=== PATIENT | male | born 1940 | race Caucasian/White ===

== ENCOUNTER 2016-07-08 13:33 | Outpatient (CLI) | payer MEDICARE, OTHER | END 2016-07-08 13:34 | disposition EMS.NT | DX: R07.1 Chest pain on breathing (principal) ==

== ENCOUNTER 2017-09-19 17:38 | Emergency (ER) | payer MEDICARE, OTHER ==
--- NOTE | 2017-09-19 17:51 | ED Physician Documentation ---
PD HPI CHEST PAIN - Stated complaint Stated Complaint: FAST PULSE - History obtained from History obtained from: Patient, Friend - History of Present Illness Timing - onset: Yesterday (76-year-old gentleman with history of oxygen dependent COPD, continues to smoke, he has had chest pressure since yesterday associated with high heart rates around 120 on his home pulse oximetry. He also has increased pedal edema. He does have a history of CHF. He denies any increased breathing Or increased cough over baseline but appears to have labored breathing.) Review of Systems Ten Systems: 10 systems reviewed and negative Constitutional: reports: Fatigue. denies: Fever, Chills Cardiac: reports: Chest pain / pressure, Pedal edema. denies: Palpitations, Calf pain Respiratory: denies: Dyspnea, Cough, Hemoptysis, Wheezing PD PAST MEDICAL HISTORY - Past Medical History Cardiovascular: Hypertension, Atrial flutter Respiratory: COPD Endocrine/Autoimmune: None : None Psych: Depression Musculoskeletal: None Derm: None - Past Surgical History Past Surgical History: No Cardiovascular: Cardiac catheterization - Present Medications Home Medications: Ambulatory Orders Medication Instructions Recorded Confirmed Albuterol [Ventolin Hfa] 2 puffs INH Q4H PRN #1 inhaler 01/01/14 05/16/14 Aspirin 325 mg 01/01/14 05/16/14 Ipratropium/Albuterol Sulfate 4 gm 01/01/14 05/16/14 [Combivent Respimat Inhal [place]] - Allergies Allergies/Adverse Reactions: Allergies Allergy/AdvReac Type Severity Reaction Status Date / Time No Known Drug Allergies Allergy Verified 01/01/14 09:50 - Social History Does the pt smoke?: Yes Smoking Status: Former smoker Does the pt drink ETOH?: Yes Does the pt have substance abuse?: No - Family History Family history: reports: Non contributory - Immunizations Immunizations are current?: No - POLST Patient has POLST: No PD ED PE NORMAL - Vitals Vital signs reviewed: Yes - General General: Alert and oriented X 3, Other (He is tachypneic, speaking in sentences but not paragraphs.) - HEENT HEENT: PERRL, EOMI - Neck Neck: Supple, no meningeal sign, No bony TTP - Cardiac Cardiac: Other (Tachycardic, regular, no murmur) - Respiratory Respiratory: Other (Labored breathing, tight throughout without focal findings, declines breathing treatment on initial evaluation.) - Abdomen Abdomen: Normal bowel sounds, Soft, Non tender - Back Back: No CVA TTP, No spinal TTP - Extremities Extremities: No edema, No calf tenderness / cord - Neuro Neuro: Alert and oriented X 3, Normal speech - Psych Psych: Normal mood, Normal affect Results - Vitals Vitals: Vital Signs - 24 hr 09/19/17 09/19/17 09/19/17 17:40 18:15 18:54 Temperature 36.8 C Heart Rate 116 H 99 99 Respiratory 24 20 20 Rate Blood Pressure 186/133 H 170/132 H O2 Saturation 96 96 09/19/17 09/19/17 19:53 20:08 Temperature 36.4 C L Heart Rate 99 120 H Respiratory 20 18 Rate Blood Pressure 181/117 H O2 Saturation 96 95 Oxygen O2 Source Nasal cannula Oxygen Flow Rate 2 - EKG (time done) 1749 Rate: Rate (enter#) (116) Rhythm: Sinus tachycardia (with occ PVC) [place]: Normal Intervals: RBBB QRS: Normal Ischemia: Normal ST segments. No: ST elevation c/w ischemia Computer interpretation: Agree with computer - Labs Labs: Laboratory Tests 09/19/17 09/19/17 09/19/17 17:50 17:50 17:50 WBC 7.1 RBC 4.22 L Hgb 13.7 L Hct 40.0 L MCV 94.6 H MCH 32.5 H MCHC 34.3 RDW 14.2 Plt Count 220 MPV 9.0 Neut # (Auto) 5.0 Lymph # (Auto) 1.0 L [place] # (Auto) 0.7 Eos # (Auto) 0.2 Baso # (Auto) 0.1 Absolute Nucleated RBC 0.01 Nucleated RBC % 0.1 Sodium 135 Potassium 3.7 Chloride 99 L Carbon Dioxide 28 Anion Gap 8.0 BUN 28 H Creatinine 1.1 Estimated GFR (MDRD) 65 L Glucose 100 Calcium 9.0 Total Bilirubin 0.7 AST 22 ALT 21 Alkaline Phosphatase 89 Troponin I 0.07 B-Natriuretic Peptide Total Protein 6.8 Albumin 3.5 Globulin 3.3 Albumin/Globulin Ratio 1.1 Lipase 34 TSH 09/19/17 09/19/17 17:50 17:50 WBC RBC Hgb Hct MCV MCH MCHC RDW Plt Count MPV Neut # (Auto) Lymph # (Auto) [place] # (Auto) Eos # (Auto) Baso # (Auto) Absolute Nucleated RBC Nucleated RBC % Sodium Potassium Chloride Carbon Dioxide Anion Gap BUN Creatinine Estimated GFR (MDRD) Glucose Calcium Total Bilirubin AST ALT Alkaline Phosphatase Troponin I B-Natriuretic Peptide 535 H Total Protein Albumin Globulin Albumin/Globulin Ratio Lipase TSH 2.54 PD MEDICAL DECISION MAKING - ED course ED course: 76-year-old gentleman presents with pretty much asymptomatic sinus tachycardia which did improve with IV fluid bolus here of 500 mL down to about 100 and requesting discharge. His labs are at his baseline. Chest x-ray without evidence of fluid overload. - Sepsis Event Vital Signs: Vital Signs - 24 hr 09/19/17 09/19/17 09/19/17 17:40 18:15 18:54 Temperature 36.8 C Heart Rate 116 H 99 99 Respiratory 24 20 20 Rate Blood Pressure 186/133 H 170/132 H O2 Saturation 96 96 09/19/17 09/19/17 19:53 20:08 Temperature 36.4 C L Heart Rate 99 120 H Respiratory 20 18 Rate Blood Pressure 181/117 H O2 Saturation 96 95 Oxygen O2 Source Nasal cannula Oxygen Flow Rate 2 Departure - Departure Disposition: 01 Home, Self Care Clinical Impression: Sinus tachycardia Condition: Good Record reviewed to determine appropriate education?: Yes Instructions: ED Tachycardia Pat PSVT Comments: Call your doctor to arrange a follow-up appointment, make the next available appointment. In the interim, return anytime if worse or if new symptoms develop. Your blood pressure was elevated today on check into the emergency department. This does not mean that you have hypertension, it is a common phenomenon to come to the emergency department and have elevated blood pressure. I recommend that you see your primary care physician within the week to have it rechecked when you are feeling better.
[2017-09-19 18:10] LABS: BASOPHILS # (AUTO) 0.1 10^3/uL (0.0-0.1); EOSINOPHILS # (AUTO) 0.2 10^3/uL (0.0-0.7); EOSINOPHILS % (AUTO) 3.1 %; HGB - HEMOGLOBIN 13.7 g/dL (14.0-18.0); LYMPHOCYTES % (AUTO) 14.7 %; MEAN CORPUSCULAR HEMOGLOBIN 32.5 pg (27.0-31.0); MEAN CORPUSCULAR HGB CONC 34.3 g/dL (32.0-36.0); MEAN CORPUSCULAR VOLUME 94.6 fL (80.0-94.0); MONOCYTES # (AUTO) 0.7 10^3/uL (0.0-1.0); MONOCYTES % (AUTO) 10.5 %; NEUTROPHILS % (AUTO) 70.7 %; PLT - PLATELET COUNT 220 10^3/uL (130-450); RED BLOOD COUNT 4.22 10^6/uL (4.70-6.10); RED CELL DISTRIBUTION WIDTH 14.2 % (12.0-15.0); WHITE BLOOD COUNT 7.1 x10^3/uL (4.8-10.8)
[2017-09-19 18:23] LABS: ALBUMIN 3.5 g/dL (3.2-5.5); ALBUMIN/GLOBULIN RATIO 1.1 (1.0-2.2); BILIRUBIN,TOTAL 0.7 mg/dL (0.2-1.0); CREATININE 1.1 mg/dL (0.6-1.2); TOTAL PROTEIN 6.8 g/dL (6.7-8.2)
[2017-09-19] MEDS ORDERED: SODIUM CHLORIDE 0.9% 500 ML IV ONE (18:34)
[2017-09-19] MEDS ORDERED: IPRATROPIUM/ALBUTEROL 3 ML NEB INH STA (18:44)
--- NOTE | 2017-09-19 18:51 | XRAY Report ---
Procedure Date: 09/19/2017 Accession Number: [id number] / [id number] Procedure: XR - Chest 1 View X-Ray CPT Code: 05611 FULL RESULT: EXAM: CHEST RADIOGRAPHY EXAM DATE: 09/19/2017 06:07 PM. CLINICAL HISTORY: Dyspnea. COMPARISON: Radiograph and CT angiogram chest 05/16/2014. TECHNIQUE: Upright AP view x2. FINDINGS: Lungs/Pleura: No focal opacities evident. No pleural effusion. No pneumothorax. Mediastinum: Within exam limitations, the cardiomediastinal contour is normal. Mild aortic arch calcification. Other: None. IMPRESSION: Negative chest. Lungs are clear. RADIA
[2017-09-19 19:55] VITALS: BP 181/117
== END 2017-09-19 20:36 | disposition home or self-care (01) ==
LOC: ED 17:38
DX: R00.0 Tachycardia, unspecified (principal); I10 Essential (primary) hypertension; J44.9 Chronic obstructive pulmonary disease, unspecified; Z87.891 Personal history of nicotine dependence
CPT/HCPCS: 36415; 71045; 80053; 83690; 83880; 84443; 84484; 85025; 93005; 94640; 96360; 99284

== ENCOUNTER 2018-03-05 11:25 | Outpatient (CLI) | payer MEDICARE, OTHER | END 2018-03-05 11:26 | disposition critical access hospital (66) | LOC: EMS 11:25 | PROVIDERS: ATTEND Surgery | DX: R45.851 Suicidal ideations (principal); R53.1 Weakness; R06.02 Shortness of breath | CPT/HCPCS: A0425; A0427 ==

== ENCOUNTER 2018-03-05 12:06 | Inpatient (IN) | payer MEDICARE, OTHER ==
[2018-03-05] MEDS ORDERED: ALBUTEROL NEB 2.5 MG/3 ML INH STA (12:21)
[2018-03-05] MEDS ORDERED: SODIUM CHLORIDE 0.9% 500 ML IV ONE (12:21)
--- NOTE | 2018-03-05 12:24 | ED Physician Documentation ---
PD HPI DYSPNEA - Stated complaint Stated Complaint: GLF - History obtained from History obtained from: Patient, EMS - History of Present Illness Timing - onset: Other (This is a 77-year-old gentleman with COPD on oxygen, 2 L/min. He has been having increased breathing difficulty over the last few days and because of that actuallywrote a vague suicide note last night and has a firearm at home. He says he is not suicidal now and today he was leaning over to get something and kind of fell backwards. There is no injury but because of weakness he could not get up by himself and paramedics were summoned and they saw the suicide note and brought him here. He has no specific complaint except for increased shortness of breath, he also has a nonproductive cough and runny nose. No fevers or body aches. He is not currently suicidal.) Review of Systems Ten Systems: 10 systems reviewed and negative Constitutional: denies: Fever, Chills, Myalgias Nose: reports: Rhinorrhea / runny nose. denies: Congestion Throat: denies: Sore throat Cardiac: denies: Chest pain / pressure, Palpitations Respiratory: reports: Dyspnea, Cough GI: denies: Abdominal Pain Musculoskeletal: reports: Extremity swelling (pedal edema at baseline for him) PD PAST MEDICAL HISTORY - Past Medical History Cardiovascular: Hypertension, Atrial flutter Respiratory: COPD Endocrine/Autoimmune: None : None Psych: Depression Musculoskeletal: None Derm: None - Past Surgical History Past Surgical History: No Cardiovascular: Cardiac catheterization - Present Medications Home Medications: Ambulatory Orders Medication Instructions Recorded Confirmed Albuterol [Ventolin Hfa] 2 puffs INH Q4H PRN #1 inhaler 01/01/14 05/16/14 Aspirin 325 mg 01/01/14 05/16/14 Ipratropium/Albuterol Sulfate 4 gm 01/01/14 05/16/14 [Combivent Respimat Inhal [place]] - Allergies Allergies/Adverse Reactions: Allergies Allergy/AdvReac Type Severity Reaction Status Date / Time No Known Drug Allergies Allergy Verified 03/05/18 12:27 - Social History Does the pt smoke?: Yes Smoking Status: Former smoker Does the pt drink ETOH?: Yes Does the pt have substance abuse?: No - Family History Family history: reports: Non contributory - Immunizations Immunizations are current?: No - POLST Patient has POLST: No PD ED PE NORMAL - Vitals Vital signs reviewed: Yes - General General: Alert and oriented X 3, Other (Somewhat breathless with poor eye contact but speaking in full sentences) - HEENT HEENT: PERRL, EOMI - Neck Neck: Supple, no meningeal sign, No bony TTP - Cardiac Cardiac: RRR, No murmur - Respiratory Respiratory: Other (Slightly labored but speaking in full sentences, rhonchorous and diminished throughout.) - Abdomen Abdomen: Soft, Non tender - Back Back: No CVA TTP, No spinal TTP - Derm Derm: Normal color, Warm and dry - Extremities Extremities: Other (Moderate symmetric pedal edema) - Neuro Neuro: Alert and oriented X 3, Normal speech Results - Vitals Vitals: Vital Signs - 24 hr 03/05/18 03/05/18 03/05/18 12:23 12:40 12:43 Temperature 36.5 C Heart Rate 88 77 77 Respiratory 20 20 15 Rate Blood Pressure 129/77 129/77 O2 Saturation 96 98 03/05/18 03/05/18 13:00 16:30 Temperature Heart Rate 86 82 Respiratory 20 17 Rate Blood Pressure 133/93 H 134/88 H O2 Saturation 91 L 94 Oxygen O2 Source Nasal cannula - EKG (time done) 1235 Rate: Rate (enter#) (78) Rhythm: NSR Intervals: RBBB Ischemia: ST elevation c/w ischemia Computer interpretation: Agree with computer - Labs Labs: Laboratory Tests 03/05/18 03/05/18 03/05/18 12:25 12:25 12:25 WBC 10.3 RBC 4.19 L Hgb 13.8 L Hct 39.0 L MCV 93.1 MCH 32.9 H MCHC 35.4 RDW 13.7 Plt Count 262 MPV 8.1 Neut # (Auto) 8.7 H Lymph # (Auto) 0.5 L [place] # (Auto) 1.0 Eos # (Auto) 0.1 Baso # (Auto) 0.1 Absolute Nucleated RBC 0.00 Nucleated RBC % 0.0 Sodium 121 L Potassium 4.7 Chloride 88 L Carbon Dioxide 22 Anion Gap 11.0 BUN 19 Creatinine 1.0 Estimated GFR (MDRD) 73 L Glucose 116 H Calcium 8.5 Total Bilirubin 1.1 H AST 24 ALT 22 Alkaline Phosphatase 83 Troponin I < 0.04 B-Natriuretic Peptide Total Protein 6.7 Albumin 3.8 Globulin 2.9 Albumin/Globulin Ratio 1.3 Lipase 35 Salicylates < 6.0 Urine Opiates Screen Ur Oxycodone Screen Urine Methadone Screen Ur Propoxyphene Screen Acetaminophen < 10 L Ur Barbiturates Screen Ur Tricyclics Screen Ur Phencyclidine Scrn Ur Amphetamine Screen U Methamphetamines Scrn U Benzodiazepines Scrn Urine Cocaine Screen U Cannabinoids Screen Ethyl Alcohol < 5.0 Influenza A (Rapid) Influenza B (Rapid) 03/05/18 03/05/18 03/05/18 12:25 12:46 13:45 WBC RBC Hgb Hct MCV MCH MCHC RDW Plt Count MPV Neut # (Auto) Lymph # (Auto) [place] # (Auto) Eos # (Auto) Baso # (Auto) Absolute Nucleated RBC Nucleated RBC % Sodium Potassium Chloride Carbon Dioxide Anion Gap BUN Creatinine Estimated GFR (MDRD) Glucose Calcium Total Bilirubin AST ALT Alkaline Phosphatase Troponin I B-Natriuretic Peptide 177 H Total Protein Albumin Globulin Albumin/Globulin Ratio Lipase Salicylates Urine Opiates Screen NEGATIVE Ur Oxycodone Screen NEGATIVE Urine Methadone Screen NEGATIVE Ur Propoxyphene Screen NEGATIVE Acetaminophen Ur Barbiturates Screen NEGATIVE Ur Tricyclics Screen NEGATIVE Ur Phencyclidine Scrn NEGATIVE Ur Amphetamine Screen NEGATIVE U Methamphetamines Scrn NEGATIVE U Benzodiazepines Scrn NEGATIVE Urine Cocaine Screen NEGATIVE U Cannabinoids Screen POSITIVE H Ethyl Alcohol Influenza A (Rapid) Negative Influenza B (Rapid) Negative - Rads (name of study) CXR Radiology: EMP read contemporaneously (Diminished right pulmonary vasculature which the radiologist feels might be consistent with PE, CTA ordered.) CTA chest Radiology: EMP read contemporaneously (No PE, dilated main pulmonary artery, low-density material within the right lower lobe and there is a small pericardial effusion which is basically chronic.) PD MEDICAL DECISION MAKING - ED course ED course: This is a 77-year-old gentleman with underlying COPD presents with exacerbation of same also be found to be fairly hyponatremic. This is all complicated by a suicide note and access to firearms. Social work saw him, but he just had a panic attack and given a small amount amount of Ativan so was not really cogent at the time. Given the respiratory compromise, weakness, and acute hyponatremia and noting that his usual sodium is in the high 130s I spoke with Dr. Maged for observation at 4:33 PM. Departure - Departure Disposition: ED Place in Observation Clinical Impression: COPD exacerbation, Hyponatremia, Suicidal ideations Condition: Serious
[2018-03-05 12:37] LABS: BASOPHILS # (AUTO) 0.1 10^3/uL (0.0-0.1); BASOPHILS % (AUTO) 0.6 %; EOSINOPHILS # (AUTO) 0.1 10^3/uL (0.0-0.7); EOSINOPHILS % (AUTO) 0.6 %; HGB - HEMOGLOBIN 13.8 g/dL (14.0-18.0); LYMPHOCYTES # (AUTO) 0.5 10^3/uL (1.5-3.5); LYMPHOCYTES % (AUTO) 4.6 %; MEAN CORPUSCULAR HEMOGLOBIN 32.9 pg (27.0-31.0); MEAN CORPUSCULAR HGB CONC 35.4 g/dL (32.0-36.0); MEAN CORPUSCULAR VOLUME 93.1 fL (80.0-94.0); MEAN PLATELET VOLUME 8.1 fL (7.4-11.4); MONOCYTES % (AUTO) 9.4 %; NEUTROPHILS # (AUTO) 8.7 10^3/uL (1.5-6.6); NEUTROPHILS % (AUTO) 84.8 %; PLT - PLATELET COUNT 262 10^3/uL (130-450); RED BLOOD COUNT 4.19 10^6/uL (4.70-6.10); RED CELL DISTRIBUTION WIDTH 13.7 % (12.0-15.0); WHITE BLOOD COUNT 10.3 x10^3/uL (4.8-10.8)
[2018-03-05 12:52] LABS: ACETAMINOPHEN < 10 ug/mL (10-30); ALBUMIN 3.8 g/dL (3.2-5.5); ALBUMIN/GLOBULIN RATIO 1.3 (1.0-2.2); ALKALINE PHOSPHATASE 83 IU/L (42-121); ALT ALANINE AMINOTRANSFERASE 22 IU/L (10-60); AST ASPARTATE AMINOTRANSFERASE 24 IU/L (10-42); BILIRUBIN,TOTAL 1.1 mg/dL (0.2-1.0); BUN - BLOOD UREA NITROGEN 19 mg/dL (6-20); CALCIUM 8.5 mg/dL (8.5-10.3); CARBON DIOXIDE - CO2 22 mmol/L (21-32); CHLORIDE 88 mmol/L (101-111); GFR - MDRD 73 (>89); GLUCOSE 116 mg/dL (70-100); LIPASE 35 U/L (22-51); SALICYLATE < 6.0 mg/dL; SODIUM 121 mmol/L (135-145); TOTAL PROTEIN 6.7 g/dL (6.7-8.2)
[2018-03-05] MEDS ORDERED: LORazepam 2 MG/ML VIAL IVP STA (12:55)
--- NOTE | 2018-03-05 13:52 | XRAY Report ---
Reason: dyspnea Procedure Date: 03/05/2018 Accession Number: [id number] / [id number] Procedure: XR - Chest 2 View X-Ray CPT Code: 39548 FULL RESULT: EXAM: CHEST RADIOGRAPHY EXAM DATE: 03/05/2018 01:31 PM. CLINICAL HISTORY: Dyspnea. COMPARISON: CHEST 1 VIEW 09/19/2017 5:56 PM CHEST 2 VIEW PA/LAT 05/16/2014 10:19 AM. TECHNIQUE: 2 views. FINDINGS: Lungs/Pleura: No focal opacities evident. No pleural effusion. No pneumothorax. Normal volumes. Mild asymmetric increased lucency to the right upper lung, favor due to diminished vascular structures. Mediastinum: Heart size is upper limits of normal for technique but not significantly changed. Mediastinal contours are stable. There is slight asymmetric prominence of the left hilar pulmonary vasculature. Other: None. IMPRESSION: 1. Appearance suggesting diminished right pulmonary vascularity with mild increase on the of the left. These findings in the setting of acute dyspnea raise possibility of acute pulmonary embolus. RADIA
[2018-03-05] MEDS ORDERED: IOVERSOL 320 100 ML VIAL IVP ONE ×2 (14:25→15:23)
[2018-03-05 14:26] LABS: MUDS CUTOFF CONCENTRATIONS CUTOFF CONC BELOW:
[2018-03-05 14:42] LABS: AMPHETAMINE SCREEN,URINE NEGATIVE (NEGATIVE); BENZODIAZEPINES SCREEN, URINE NEGATIVE (NEGATIVE); COCAINE SCREEN URINE NEGATIVE (NEGATIVE); METHADONE SCREEN, URINE NEGATIVE (NEGATIVE); METHAMPHETAMINES SCREEN, URINE NEGATIVE (NEGATIVE); OPIATE SCREEN, URINE NEGATIVE (NEGATIVE); OXYCODONE SCREEN, URINE NEGATIVE (NEGATIVE); PROPOXYPHENE SCREEN, URINE NEGATIVE (NEGATIVE); TRICYCLIC ANTIDEPRESSANT,URINE NEGATIVE (NEGATIVE)
--- NOTE | 2018-03-05 15:49 | CT Report ---
Reason: dyspnea Procedure Date: 03/05/2018 Accession Number: [id number] / [id number] Procedure: CT - Chest Angio (PE) CPT Code: FULL RESULT: EXAM: CT ANGIOGRAM CHEST. EXAM DATE: 03/05/2018 03:20 PM. CLINICAL HISTORY: Dyspnea. Possible [place] sign on chest x-ray. COMPARISON: Chest angiogram 05/16/2014 12:57 PM. TECHNIQUE: Routine helical imaging was performed through the chest in the pulmonary arterial phase. IV Contrast: 80 mL ISOVUE 320. Reconstructions: Coronal 3-D MIP reconstructions.Sagittal and coronal. In accordance with CT protocol optimization, one or more of the following dose reduction techniques were utilized for this exam: automated exposure control, adjustment of mA and/or KV based on patient size, or use of iterative reconstructive technique. FINDINGS: Pulmonary Arteries: Main pulmonary artery segment is dilated at 3.3 cm. The pulmonary arteries are also dilated at 2.8 cm (right) and 2.6 cm (left). Diagnostic quality: Adequate through the segmental arteries. No evidence for acute or chronic pulmonary emboli. RV/LV is within normal limits. There is no interventricular septal bowing. There is no reflux of contrast material in the IVC. Lungs/Pleura: No consolidation, nodules, or edema. No effusions or pneumothorax. Subtotal mucus/low density filling of segmental bronchus to the posterior segment right lower lobe. Mediastinum: Heart is normal in size. There is a small anterior pericardial effusion 7-8 mm in AP thickness, only slightly larger than the comparison exam of 2014. There is atherosclerotic deposition noted of the aorta and coronary vessels similar to the prior exam. 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 Thoracic Aorta: As above. Upper Abdomen: No specific abnormalities demonstrated. Other: None. IMPRESSION: 1. No evidence of acute pulmonary embolus. 2. Dilated main pulmonary artery/central pulmonary arteries as described could indicate underlying pulmonary artery hypertension. No appreciable evidence of right heart strain. 3. Low-density material/mucus within segmental right lower lobe bronchus could be due to aspiration. 4. Small pericardial effusion only slightly larger than the comparison exam. RADIA
[2018-03-05] MEDS ORDERED: PROMETHAZINE 25 MG/1 ML VIAL IM PRN (17:10)
[2018-03-05] MEDS ORDERED: ONDANSETRON 4 MG/2 ML VIAL IVP PRN (17:10)
[2018-03-05] MEDS ORDERED: MORPHINE 2 MG/ML CARPUJECT IVP PRN (17:10)
[2018-03-05] MEDS ORDERED: HYDROcod/ACETAM 5/325 MG TABLET PO PRN (17:10)
[2018-03-05] MEDS ORDERED: TEMAZEPAM 15 MG CAPSULE PO PRN (17:10)
--- NOTE | 2018-03-05 17:20 | HISTORY & PHYSICAL EXAMINATION ---
Chief Complaint - Chief Complaint Chief Complaint: fall, AMS History of Present Illness - Admitted From Admitted From:: ED - History Obtained From Records Reviewed: yes History obtained from: chart review, patient, family friend-Yanick Exam Limitations: AMS - History of Present Illness HPI Comment/Other: Mendoza Medrano is a ill appearing 77-year old male with a past medical history of CHF, hypertension, atrial flutter, COPD, tobacco dependence, oxygen dependence, falls, depression, anxiety, previous suicide attempts and nocturia. The patient called for help after falling to his knees from becoming too weak at home. He has frequent care givers to help with house work and meals. Once the EMS arrived, the patient was found on the floor and was conscious. Rescue workers found a suicide note with a pistol on the kitchen table. He was transported to the ED and was found to be hypoxic, and slightly confused. His friend Yanick, who the patient claims to be his "best friend" is present for the initial exam and states that he is very concerned for his well being. On exam the patient is only mildly agitated, but could not attest to no longer being suicidal. In fact, he claimed that he was quite upset that he had to fall to the floor before getting this task completed and became tearful multiple times during my time with him. He is on oxygen, has an unkept appearance, poor dentition, has equal weakness in all 4 extremities, and smells of urine. He denies recent illness, fever, chills, vomiting, diarrhea, rashes, hallucinations, or a new cough. Labs showed a low H/H of 13.8/39.0, a normal WBC, a low sodium of 121, a negative troponin with no other lab abnormalities. He will be admitted for further work up to inpatient with a 1:1 sitter, worrisome for continued suicidal ideation. History - Past Medical History Cardiovascular: reports: Congestive heart failure, Hypertension, High cholesterol, Coronary artery disease, Peripheral Vascular Disease, Atrial flutter, Atrial fibrillation, Murmur, Arrhythmia Respiratory: reports: Asthma, COPD, Pneumonia, Shortness of breath, Sleep apnea, Other (chronic home oxygen at 2L via nasal cannula.) Neuro: reports: Dementia, Headaches, Peripheral neuropathy, Tremors Endocrine/Autoimmune: reports: None GI: reports: GERD : reports: None, Nocturia, Frequency HEENT: reports: Chronic vision loss, Chronic hearing loss Psych: reports: Depression, Anxiety, Post traumatic stress disorder Musculoskeletal: reports: Osteoarthritis, Fatigue, Chronic back pain, Other (chronic carpel tunnel discomfort in dominant Left wrist) Derm: reports: None MRSA Hx?: No - Past Surgical History Cardiovascular: reports: Angioplasty - Family & Social History Family History: Mother: , CAD, Father: , CAD, Brother: Alive and Well, , CAD Living arrangement: At home Living Situation: Alone Social History Notes: The patient has been retired for several years but worked for the [employer] and had 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 Most of his [place] was done [place]. He was to his , who 4 years ago. He lives independently and has caregiver severel times per week. He has a best friend named Yanick. The patient admits to life long cigarette smoking, occasional alcohol use, or illicit drug use, although tested + for marijuana. The patient requests to be a DNR. - Substance History Use: Uses substance without health or social issues: Tobacco Use Issues: Anxiety Disorder Abuse: Recurrent use of substance despite neg consequences: NONE Dependence: Experiences withdrawal or developed tolerances: Tobacco Dependence Issues: Anxiety Disorder Tobacco Details: Cigarettes (life long smoker, currently greater than 1 PPD.) - POLST Patient has POLST: No POLST Status: DNR Meds/Allgy - Home Medications Home Medications: Ambulatory Orders Medication Instructions Recorded Confirmed Aspirin 325 mg PO DAILY 01/01/14 03/05/18 Ipratropium/Albuterol Sulfate 1 puffs INH QID 01/01/14 03/05/18 [Combivent Respimat Inhal [place]] Albuterol Sulfate [Proair Hfa 2 puffs INH Q6H PRN 03/05/18 03/05/18 Inhaler] Atorvastatin Calcium 40 mg PO QPM 03/05/18 03/05/18 Cholecalciferol (Vitamin D3) 400 units PO DAILY 03/05/18 03/05/18 [Vitamin D3] Enalapril Maleate 10 mg PO DAILY 03/05/18 03/05/18 Fluticasone/Vilanterol [Breo 1 puffs INH BID 03/05/18 03/05/18 Ellipta 200-25 Mcg INH] Spironolactone 25 mg PO DAILY 03/05/18 03/05/18 diltiaZEM CD [Cardizem Cd] 180 mg PO DAILY 03/05/18 03/05/18 - Allergies Allergies/Adverse Reactions: Allergies Allergy/AdvReac Type Severity Reaction Status Date / Time No Known Drug Allergies Allergy Verified 03/05/18 12:27 Review of Systems - Constitutional Constitutional: reports: Fatigue, Weakness, Poor appetite - Eyes Eyes: reports: Vision loss, Corrective lenses - Ears, Nose & Throat Ears, Nose & Throat: reports: Hearing loss, Postnasal drainage - Cardiovascular Cariovascular: reports: Edema, Lightheadedness, Exertional dyspnea, Decr. exercise tolerance, Orthopnea - Respiratory Respiratory: reports: Cough, Orthopnea, SOB at rest, SOB with exertion - Gastrointestinal Gastrointestinal: reports: Abdominal distention, Nausea, Reflux/heartburn, Bloating, Poor appetite - Genitourinary Genitourinary: reports: Dysuria, Nocturia - Musculoskeletal Musculoskeletal: reports: Muscle aches, Muscle weakness, Joint swelling - Integumentary Integumentary: reports: Dryness, Other (overall poor skin condition) - Neurological Neurological: reports: General weakness, Headache, Memory problems, Pre-existing deficit, Abnormal gait, Incoordination - Psychiatric Psychiatric: reports: Depression, Anxiety, Suicidal - Hematologic/Lymphatic Hematologic/Lymphatic: reports: Anemia, Bruising - All Other Systems All Other Systems: reports: Reviewed and negative Prior Level of Functionality: Ambulates independently unless he falls. Exam - Vital Signs Reviewed Vital Signs: Yes Vital Signs: Vital Signs x48h Temp Pulse Resp BP Pulse Ox 03/05/18 16:30 82 17 134/88 H 94 03/05/18 13:00 86 20 133/93 H 91 L 03/05/18 12:43 77 15 129/77 98 03/05/18 12:40 77 20 03/05/18 12:23 36.5 C 88 20 129/77 96 - Physical Exam General Appearance: positive: Alert, Moderate distress, Anxious Eyes Bilateral: positive: PERRL, Other (bilateral eye swelling-mild, scleral icterus) ENT: positive: Pharyngeal erythema, Dry mucous membranes Neck: positive: No JVD Respiratory: positive: Chest non-tender, Rhonchi (coarse throughout bilaterally) Cardiovascular: positive: Regular rate & rhythm, Tachycardia, Systolic murmur, Decreased pulse(s) Peripheral Pulses: positive: 1+ Abdomen: positive: Nml bowel sounds, Guarding, Hepatomegaly, Other (obese, firm) Back: positive: Nml inspection Skin: positive: No rash, Warm, Dry, Other (poor overall skin condition) Extremities: positive: Pedal edema, Joint swelling, Other (tenderness, loss of sensation, dry flakey skin to BLEs-chronic edema. Loss of muscle tone) Neurologic/Psychiatric: positive: Disoriented to time, Weakness, Sensory loss, Slurred/abnml speech, Depressed mood/affect, Other (baseline early dementia- acute memory loss and mild confusion. Could not elaborate on his medical conditions or what may be going on today.) Reflexes: Bicep (R): 2+, Bicep (L): 2+ Sepsis Event Note (H) - Evaluation Current Stage of Sepsis: Ruled out Conclusion/Plan - Problem List (1) Metabolic encephalopathy Conclusion/Plan: The patient cannot answer questions asked and cannot elaborate on his medical diagnoses. He is not known to be quite this confused as per his friend-Yanick who is at the bedside during his initial exam. A contributing factor may be due to being hyponatremic. Plan: Continue to monitor. (2) Hyponatremia Conclusion/Plan: The patient is found to have a low sodium of 121, which is likely related to his CHF exacerbation showing fluid overload. Plan: daily labs, start IV lasix. (3) CHF exacerbation Conclusion/Plan: The patient has coarse crackles in bilateral lobes, increased oxygen requirements, abdominal edema, and profound BLE edema. Imaging shows no pleural effusions, but based on history and physical findings, the patient is most likely having an exacerbation. An old echo from 2014 showed a reduced EF of 50-55%, mild LVH and pulmonary hypertension. Plan: IV lasix, continue home spironolactone, obtain an echo in the AM and monitor I/O, daily weights, etc. Qualifiers: Heart failure type: combined systolic and diastolic Qualified Code(s): I50.43 - Acute on chronic combined systolic (congestive) and diastolic (congestive) heart failure (4) Suicidal ideations Conclusion/Plan: In reviewing the chart and with the confirmation from the patient's friend, a similar thing happened about 3 years ago on the anniversary of the loss of his in which he had a gun and a suicide note. He notes that "things just did not go his way", and he has not been able to carry out this wish of killing himself. He claims that he no longer has anyone to live for since loosing his . Plan: Continue 1:1 and re-assess. Social work to follow. (5) Fall Conclusion/Plan: The patient states that he has been falling more often lately without injury, but has been able to get back up on his own. For the fall prior to admission, he fell and felt too weak to get back up, so was able to call for help. Plan: Continue fall precautions, PT to evaluate after medically clear. Qualifiers: Encounter type: subsequent encounter Qualified Code(s): W19.XXXD - Unspecified fall, subsequent encounter (6) Tobacco dependence Conclusion/Plan: The patient admits to using tobacco for his entire life and just recently has been smoking up to 1 PPD. He is agreeable to a nicotine patch. Plan: Continue daily nicotine patch. (7) Moderate chronic obstructive pulmonary disease Conclusion/Plan: The patient has known COPD and is oxygen dependent at home. He continues to smoke up to 1 PPD. He is prescribed Breo Ellipta, Proair and a rescue inhaler at home. He admits to compliance, although is somewhat confused on admission. His lung exam reveals bilateral coarse crackles, which is most likely related to his CHF exacerbation. He is not wheezy on exam, has not had a new productive cough and is able to speak in full sentences on exam. Plan: Continue respiratory care, budesinide, duo-nebs and incentive spirometry. - Lab Results Lab results reviewed: Yes Shaun Bones: 03/06/18 05:35 03/06/18 05:35 Core Measures - Anticipated LOS I expect patient to be DC'd or transferred within 96 hours.: Yes - DVT/VTE - Prophylaxis VTE/DVT Device ordered at admit?: Yes VTE/DVT Prophylaxis med ordered at admit?: Yes - Stroke - Rehab Assessment Rehab services assessment to be ordered?: Yes - AMI - Statin at Admit Aspirin Prescribed on Admit: Yes
[2018-03-05] MEDS ORDERED: IPRATROPIUM/ALBUTEROL 3 ML NEB INH PRN (18:59)
[2018-03-05] MEDS ORDERED: LIDOCAINE 2% URO-JET 5 ML SYRINGE UR PRN (19:03)
[2018-03-05] MEDS: FUROSEMIDE 40 MG/4 ML VIAL IVP SCH (19:36)
[2018-03-05] MEDS: NICOTINE 14 MG PATCH TOP SCH (19:36)
[2018-03-05] MEDS: SODIUM CHLORIDE FLUSH 0.9% 10 ML SYRINGE IVP PRN (19:38)
[2018-03-05] MEDS: IPRATROPIUM/ALBUTEROL 3 ML NEB INH SCH (20:18)
[2018-03-05] MEDS: FAMOTIDINE 20 MG TABLET PO SCH (20:25)
[2018-03-05] MEDS: ATORVASTATIN 40 MG TABLET PO SCH (20:25)
[2018-03-06] MEDS: ACETAMINOPHEN 325 MG TABLET PO PRN (01:07)
[2018-03-06] MEDS: SODIUM CHLORIDE FLUSH 0.9% 10 ML SYRINGE IVP SCH ×4 (01:09→21:23)
[2018-03-06] MEDS: FUROSEMIDE 40 MG/4 ML VIAL IVP SCH ×2 (05:41→14:27)
[2018-03-06] MEDS: SODIUM CHLORIDE FLUSH 0.9% 10 ML SYRINGE IVP PRN ×2 (05:41→14:34)
[2018-03-06 05:48] LABS: BASOPHILS # (AUTO) 0.1 10^3/uL (0.0-0.1); BASOPHILS % (AUTO) 1.1 %; EOSINOPHILS # (AUTO) 0.2 10^3/uL (0.0-0.7); EOSINOPHILS % (AUTO) 2.3 %; LYMPHOCYTES # (AUTO) 0.8 10^3/uL (1.5-3.5); LYMPHOCYTES % (AUTO) 9.5 %; MEAN CORPUSCULAR HEMOGLOBIN 32.9 pg (27.0-31.0); MEAN CORPUSCULAR HGB CONC 34.1 g/dL (32.0-36.0); MEAN CORPUSCULAR VOLUME 96.6 fL (80.0-94.0); MEAN PLATELET VOLUME 7.9 fL (7.4-11.4); NEUTROPHILS # (AUTO) 6.5 10^3/uL (1.5-6.6); NEUTROPHILS % (AUTO) 75.1 %; PLT - PLATELET COUNT 255 10^3/uL (130-450); RED BLOOD COUNT 4.24 10^6/uL (4.70-6.10); RED CELL DISTRIBUTION WIDTH 13.7 % (12.0-15.0); WHITE BLOOD COUNT 8.7 x10^3/uL (4.8-10.8)
[2018-03-06 06:05] LABS: ALBUMIN 3.7 g/dL (3.2-5.5); ALBUMIN/GLOBULIN RATIO 1.3 (1.0-2.2); CALCIUM 9.1 mg/dL (8.5-10.3); MAGNESIUM 1.7 mg/dL (1.7-2.8); PHOSPHORUS 4.1 mg/dL (2.5-4.6); TOTAL PROTEIN 6.6 g/dL (6.7-8.2)
[2018-03-06] MEDS: IPRATROPIUM/ALBUTEROL 3 ML NEB INH SCH ×4 (07:43→22:58)
[2018-03-06] MEDS: BUDESONIDE 0.5 MG/2 ML NEB INH SCH ×2 (07:43→22:58)
[2018-03-06] MEDS: FAMOTIDINE 20 MG TABLET PO SCH ×2 (09:16→21:23)
[2018-03-06] MEDS: POLYETHYLENE GLYCOL 3350 17 GM PACKET PO SCH (09:16)
[2018-03-06] MEDS: SPIRONOLACTONE 25 MG TABLET PO SCH (09:16)
[2018-03-06] MEDS: ENOXAPARIN 40 MG/0.4 ML SYRINGE SUBQ SCH (09:16)
[2018-03-06] MEDS: CHOLECALCIFEROL 400 UNIT TABLET PO SCH (09:16)
[2018-03-06] MEDS: ASPIRIN 325 MG TABLET PO SCH (09:16)
[2018-03-06] MEDS: diltiaZEM CD 180 MG CAPSULE PO SCH (09:16)
[2018-03-06] MEDS: NICOTINE 14 MG PATCH TOP SCH (09:17)
--- NOTE | 2018-03-06 12:13 | PROVIDER PROGRESS NOTE ---
Subjective - Prog Note Date Prog Note Date: 03/06/18 Prog Note Time: 12:13 - Subjective Pt reports feeling: Improved Subjective: The patient complains of his fears of being watched by the state since his 2nd suicidal ideation. He complains that he is frustrated about continuing to live and feels stuck in his body. He denies any new symptoms such as chest pain, chest pressure, nausea, vomiting, diarrhea, a new rash, or a new cough. Current Medications - Current Medications Current Medications: Active Medications: Acetaminophen (Tylenol) 650 mg PO Q4HR PRN Hydrocodone Bitart/Acetaminophen ([place] 5/325) 1 tab PO Q4HR PRN Albuterol/Ipratropium (Duoneb) 3 ml INH Q4HR PRN Albuterol/Ipratropium (Duoneb) 3 ml INH RTQID LUIS ENRIQUE Alprazolam (Xanax) 0.25 mg PO Q6HR PRN Aspirin (Jass) 325 mg PO DAILY LUIS ENRIQUE Atorvastatin Calcium (Lipitor) 40 mg PO QPM LUIS ENRIQUE Budesonide (Pulmicort) 0.5 mg INH RTBID LUIS ENRIQUE Cholecalciferol (Vitamin D3) 400 unit PO DAILY LUIS ENRIQUE Diltiazem HCl (Cardizem Cd) 180 mg PO DAILY LUIS ENRIQUE Enoxaparin Sodium (Lovenox) 40 mg SUBQ DAILY LUIS ENRIQUE Famotidine (Pepcid) 20 mg PO BID LUIS ENRIQUE Furosemide (Lasix Inj 40 Mg Vial) 40 mg IVP BIDDIURETIC LUIS ENRIQUE Lidocaine HCl (Xylocaine Uro-Jet 2%) 2.5 ml UR Q6H PRN Lorazepam (Ativan) 0.5 mg PO Q6H PRN Morphine Sulfate (Morphine (Carpuject)) 2 mg IVP Q2HR PRN Morphine Sulfate (Roxanol) 5 mg PO Q2HR PRN Nicotine (Nicoderm) 1 patch TOP DAILY LUIS ENRIQUE Ondansetron HCl (Zofran Inj) 4 mg IVP Q6HR PRN Polyethylene Glycol (Miralax) 17 gm PO DAILY LUIS ENRIQUE Promethazine HCl (Phenergan Inj) 25 mg IM Q6HR PRN Sodium Chloride (Normal Saline Flush 0.9%) 10 ml IVP PRN PRN Sodium Chloride (Normal Saline Flush 0.9%) 10 ml IVP 0100,0900,1700 LUIS ENRIQUE Spironolactone (Aldactone) 25 mg PO DAILY LUIS ENRIQUE Temazepam (Restoril) 15 mg PO QPM PRN HOME meds: Aspirin 325 mg PO DAILY 01/01/14 Ipratropium/Albuterol Sulfate [Combivent Respimat Inhal [place]] 1 puffs INH QID 01/01/14 Albuterol Sulfate [Proair Hfa Inhaler] 2 puffs INH Q6H PRN 03/05/18 Atorvastatin Calcium 40 mg PO QPM 03/05/18 Cholecalciferol (Vitamin D3) [Vitamin D3] 400 units PO DAILY 03/05/18 Enalapril Maleate 10 mg PO DAILY 03/05/18 Fluticasone/Vilanterol [Breo Ellipta 200-25 Mcg INH] 1 puffs INH BID 03/05/18 Spironolactone 25 mg PO DAILY 03/05/18 diltiaZEM CD [Cardizem Cd] 180 mg PO DAILY 03/05/18 Objective - Vital Signs/Intake & Output Reviewed Vital Signs: Yes Vital Signs: Vital Signs x48h Temp Pulse Pulse Resp BP Pulse Ox 03/06/18 11:56 36.9 C 101 H 20 137/91 H 97 03/06/18 11:18 76 18 03/06/18 07:45 84 20 03/06/18 07:35 36.7 C 60 20 138/83 H 97 Intake & Output: Intake & Output 03/03/18 03/04/18 03/05/18 03/06/18 23:59 23:59 23:59 23:59 Intake Total 700 450 Output Total 1622 8785 Balance -924 -7514 - Objective General Appearance: positive: Moderate distress, Anxious Eyes Bilateral: positive: PERRL Eyes: OU Lid inflammation (related to tearfulness) ENT: positive: Pharynx nml, No signs of dehydration Neck: positive: Thyroid nml, No JVD, Trachea midline Respiratory: positive: Chest non-tender, No respiratory distress, Rhonchi Cardiovascular: positive: Regular rate & rhythm, No gallop, Systolic murmur Peripheral Pulses: 1+ Radial (R), 1+ Radial (L) Abdomen: positive: Non-tender, Nml bowel sounds Back: positive: Nml inspection Skin: positive: No rash, Warm, Dry, Pallor, Other (bronze) Extremities: positive: Non-tender, Full ROM, Pedal edema, Joint swelling Neurologic/Psychiatric: positive: Oriented x3, CN's nml (2-12), Weakness, Sensory loss, Slurred/abnml speech (sluggish speech, flight of ideas. Unrealistics statements), Depressed mood/affect, Other (baseline early dementia with short term memory loss) Reflexes: Bicep (R): 3+, Bicep (L): 3+ - Lab Results Fish Bones: 03/06/18 05:35 03/06/18 05:35 Other Labs: Lab Results x24hrs 03/06/18 03/06/18 03/06/18 Range/Units 05:35 05:35 05:35 WBC (4.8-10.8) x10^3/uL RBC (4.70-6.10) 10^6/uL Hgb (14.0-18.0) g/dL Hct (42.0-52.0) % MCV (80.0-94.0) fL MCH (27.0-31.0) pg MCHC (32.0-36.0) g/dL RDW (12.0-15.0) % Plt Count (130-450) 10^3/uL MPV (7.4-11.4) fL Neut # (Auto) (1.5-6.6) 10^3/uL Lymph # (Auto) (1.5-3.5) 10^3/uL [place] # (Auto) (0.0-1.0) 10^3/uL Eos # (Auto) (0.0-0.7) 10^3/uL Baso # (Auto) (0.0-0.1) 10^3/uL Absolute Nucleated RBC x10^3/uL Nucleated RBC % /100WBC Sodium 127 L (135-145) mmol/L Potassium 4.2 (3.5-5.0) mmol/L Chloride 91 L (101-111) mmol/L Carbon Dioxide 27 (21-32) mmol/L Anion Gap 9.0 (6-13) BUN 17 (6-20) mg/dL Creatinine 1.0 (0.6-1.2) mg/dL Estimated GFR (MDRD) 73 L (>89) Glucose 101 H (70-100) mg/dL Lactic Acid 0.8 (0.5-2.2) mmol/L Calcium 9.1 (8.5-10.3) mg/dL Phosphorus 4.1 (2.5-4.6) mg/dL Magnesium 1.7 (1.7-2.8) mg/dL Total Bilirubin 1.0 (0.2-1.0) mg/dL AST 38 (10-42) IU/L ALT 22 (10-60) IU/L Alkaline Phosphatase 88 (42-121) IU/L Troponin I (<0.49) ng/mL B-Natriuretic Peptide 288 H (5-100) pg/mL Total Protein 6.6 L (6.7-8.2) g/dL Albumin 3.7 (3.2-5.5) g/dL Globulin 2.9 (2.1-4.2) g/dL Albumin/Globulin Ratio 1.3 (1.0-2.2) Lipase (22-51) U/L Salicylates mg/dL Urine Opiates Screen (NEGATIVE) Ur Oxycodone Screen (NEGATIVE) Urine Methadone Screen (NEGATIVE) Ur Propoxyphene Screen (NEGATIVE) Acetaminophen (10-30) ug/mL Ur Barbiturates Screen (NEGATIVE) Ur Tricyclics Screen (NEGATIVE) Ur Phencyclidine Scrn (NEGATIVE) Ur Amphetamine Screen (NEGATIVE) U Methamphetamines Scrn (NEGATIVE) U Benzodiazepines Scrn (NEGATIVE) Urine Cocaine Screen (NEGATIVE) U Cannabinoids Screen (NEGATIVE) Ethyl Alcohol mg/dL Influenza A (Rapid) (Negative) Influenza B (Rapid) (Negative) 03/06/18 03/05/18 03/05/18 Range/Units 05:35 13:45 12:46 WBC 8.7 (4.8-10.8) x10^3/uL RBC 4.24 L (4.70-6.10) 10^6/uL Hgb 14.0 (14.0-18.0) g/dL Hct 40.9 L (42.0-52.0) % MCV 96.6 H (80.0-94.0) fL MCH 32.9 H (27.0-31.0) pg MCHC 34.1 (32.0-36.0) g/dL RDW 13.7 (12.0-15.0) % Plt Count 255 (130-450) 10^3/uL MPV 7.9 (7.4-11.4) fL Neut # (Auto) 6.5 (1.5-6.6) 10^3/uL Lymph # (Auto) 0.8 L (1.5-3.5) 10^3/uL [place] # (Auto) 1.0 (0.0-1.0) 10^3/uL Eos # (Auto) 0.2 (0.0-0.7) 10^3/uL Baso # (Auto) 0.1 (0.0-0.1) 10^3/uL Absolute Nucleated RBC 0.01 x10^3/uL Nucleated RBC % 0.1 /100WBC Sodium (135-145) mmol/L Potassium (3.5-5.0) mmol/L Chloride (101-111) mmol/L Carbon Dioxide (21-32) mmol/L Anion Gap (6-13) BUN (6-20) mg/dL Creatinine (0.6-1.2) mg/dL Estimated GFR (MDRD) (>89) Glucose (70-100) mg/dL Lactic Acid (0.5-2.2) mmol/L Calcium (8.5-10.3) mg/dL Phosphorus (2.5-4.6) mg/dL Magnesium (1.7-2.8) mg/dL Total Bilirubin (0.2-1.0) mg/dL AST (10-42) IU/L ALT (10-60) IU/L Alkaline Phosphatase (42-121) IU/L Troponin I (<0.49) ng/mL B-Natriuretic Peptide (5-100) pg/mL Total Protein (6.7-8.2) g/dL Albumin (3.2-5.5) g/dL Globulin (2.1-4.2) g/dL Albumin/Globulin Ratio (1.0-2.2) Lipase (22-51) U/L Salicylates mg/dL Urine Opiates Screen NEGATIVE (NEGATIVE) Ur Oxycodone Screen NEGATIVE (NEGATIVE) Urine Methadone Screen NEGATIVE (NEGATIVE) Ur Propoxyphene Screen NEGATIVE (NEGATIVE) Acetaminophen (10-30) ug/mL Ur Barbiturates Screen NEGATIVE (NEGATIVE) Ur Tricyclics Screen NEGATIVE (NEGATIVE) Ur Phencyclidine Scrn NEGATIVE (NEGATIVE) Ur Amphetamine Screen NEGATIVE (NEGATIVE) U Methamphetamines Scrn NEGATIVE (NEGATIVE) U Benzodiazepines Scrn NEGATIVE (NEGATIVE) Urine Cocaine Screen NEGATIVE (NEGATIVE) U Cannabinoids Screen POSITIVE H (NEGATIVE) Ethyl Alcohol mg/dL Influenza A (Rapid) Negative (Negative) Influenza B (Rapid) Negative (Negative) 03/05/18 03/05/18 03/05/18 Range/Units 12:25 12:25 12:25 WBC (4.8-10.8) x10^3/uL RBC (4.70-6.10) 10^6/uL Hgb (14.0-18.0) g/dL Hct (42.0-52.0) % MCV (80.0-94.0) fL MCH (27.0-31.0) pg MCHC (32.0-36.0) g/dL RDW (12.0-15.0) % Plt Count (130-450) 10^3/uL MPV (7.4-11.4) fL Neut # (Auto) (1.5-6.6) 10^3/uL Lymph # (Auto) (1.5-3.5) 10^3/uL [place] # (Auto) (0.0-1.0) 10^3/uL Eos # (Auto) (0.0-0.7) 10^3/uL Baso # (Auto) (0.0-0.1) 10^3/uL Absolute Nucleated RBC x10^3/uL Nucleated RBC % /100WBC Sodium 121 L (135-145) mmol/L Potassium 4.7 (3.5-5.0) mmol/L Chloride 88 L (101-111) mmol/L Carbon Dioxide 22 (21-32) mmol/L Anion Gap 11.0 (6-13) BUN 19 (6-20) mg/dL Creatinine 1.0 (0.6-1.2) mg/dL Estimated GFR (MDRD) 73 L (>89) Glucose 116 H (70-100) mg/dL Lactic Acid (0.5-2.2) mmol/L Calcium 8.5 (8.5-10.3) mg/dL Phosphorus (2.5-4.6) mg/dL Magnesium (1.7-2.8) mg/dL Total Bilirubin 1.1 H (0.2-1.0) mg/dL AST 24 (10-42) IU/L ALT 22 (10-60) IU/L Alkaline Phosphatase 83 (42-121) IU/L Troponin I < 0.04 (<0.49) ng/mL B-Natriuretic Peptide 177 H (5-100) pg/mL Total Protein 6.7 (6.7-8.2) g/dL Albumin 3.8 (3.2-5.5) g/dL Globulin 2.9 (2.1-4.2) g/dL Albumin/Globulin Ratio 1.3 (1.0-2.2) Lipase 35 (22-51) U/L Salicylates < 6.0 mg/dL Urine Opiates Screen (NEGATIVE) Ur Oxycodone Screen (NEGATIVE) Urine Methadone Screen (NEGATIVE) Ur Propoxyphene Screen (NEGATIVE) Acetaminophen < 10 L (10-30) ug/mL Ur Barbiturates Screen (NEGATIVE) Ur Tricyclics Screen (NEGATIVE) Ur Phencyclidine Scrn (NEGATIVE) Ur Amphetamine Screen (NEGATIVE) U Methamphetamines Scrn (NEGATIVE) U Benzodiazepines Scrn (NEGATIVE) Urine Cocaine Screen (NEGATIVE) U Cannabinoids Screen (NEGATIVE) Ethyl Alcohol < 5.0 mg/dL Influenza A (Rapid) (Negative) Influenza B (Rapid) (Negative) 03/05/18 Range/Units 12:25 WBC 10.3 (4.8-10.8) x10^3/uL RBC 4.19 L (4.70-6.10) 10^6/uL Hgb 13.8 L (14.0-18.0) g/dL Hct 39.0 L (42.0-52.0) % MCV 93.1 (80.0-94.0) fL MCH 32.9 H (27.0-31.0) pg MCHC 35.4 (32.0-36.0) g/dL RDW 13.7 (12.0-15.0) % Plt Count 262 (130-450) 10^3/uL MPV 8.1 (7.4-11.4) fL Neut # (Auto) 8.7 H (1.5-6.6) 10^3/uL Lymph # (Auto) 0.5 L (1.5-3.5) 10^3/uL [place] # (Auto) 1.0 (0.0-1.0) 10^3/uL Eos # (Auto) 0.1 (0.0-0.7) 10^3/uL Baso # (Auto) 0.1 (0.0-0.1) 10^3/uL Absolute Nucleated RBC 0.00 x10^3/uL Nucleated RBC % 0.0 /100WBC Sodium (135-145) mmol/L Potassium (3.5-5.0) mmol/L Chloride (101-111) mmol/L Carbon Dioxide (21-32) mmol/L Anion Gap (6-13) BUN (6-20) mg/dL Creatinine (0.6-1.2) mg/dL Estimated GFR (MDRD) (>89) Glucose (70-100) mg/dL Lactic Acid (0.5-2.2) mmol/L Calcium (8.5-10.3) mg/dL Phosphorus (2.5-4.6) mg/dL Magnesium (1.7-2.8) mg/dL Total Bilirubin (0.2-1.0) mg/dL AST (10-42) IU/L ALT (10-60) IU/L Alkaline Phosphatase (42-121) IU/L Troponin I (<0.49) ng/mL B-Natriuretic Peptide (5-100) pg/mL Total Protein (6.7-8.2) g/dL Albumin (3.2-5.5) g/dL Globulin (2.1-4.2) g/dL Albumin/Globulin Ratio (1.0-2.2) Lipase (22-51) U/L Salicylates mg/dL Urine Opiates Screen (NEGATIVE) Ur Oxycodone Screen (NEGATIVE) Urine Methadone Screen (NEGATIVE) Ur Propoxyphene Screen (NEGATIVE) Acetaminophen (10-30) ug/mL Ur Barbiturates Screen (NEGATIVE) Ur Tricyclics Screen (NEGATIVE) Ur Phencyclidine Scrn (NEGATIVE) Ur Amphetamine Screen (NEGATIVE) U Methamphetamines Scrn (NEGATIVE) U Benzodiazepines Scrn (NEGATIVE) Urine Cocaine Screen (NEGATIVE) U Cannabinoids Screen (NEGATIVE) Ethyl Alcohol mg/dL Influenza A (Rapid) (Negative) Influenza B (Rapid) (Negative) ABX Reporting Has patient been on IV antibiotics over the past 48 hours?: No Sepsis Event Note (H) - Evaluation Current Stage of Sepsis: Ruled out Assessment/Plan - Problem List (1) Metabolic encephalopathy Impression: The patient can answer all orientation questions today, but becomes easily distracted and talks about things out of context. A contributing factor may be due to being hyponatremic, although this is improved today. He has underlying anxiety, which is likely causing the flight of ideas demonstrated today on exam. Plan: Continue to monitor, give medication for anxiety. (2) CHF exacerbation Impression: The patient has coarse crackles in bilateral lobes that is slightly improved today, continues on oxygen at his home rate, abdominal edema, and chronic BLE edema. Imaging on admission showed no pleural effusions, but based on history and physical findings, the patient was thought to be having an exacerbation. An old echo from 2014 showed a reduced EF of 50-55%, mild LVH and pulmonary hypertension and preliminary results today show a worsening with an EF of 45- 50%. He is on diltiazem for rate control at home, which continues here. Plan: IV lasix, continue home spironolactone, daily weights, etc. Qualifiers: Heart failure type: combined systolic and diastolic Qualified Code(s): I50.43 - Acute on chronic combined systolic (congestive) and diastolic (congestive) heart failure (3) Moderate chronic obstructive pulmonary disease Impression: The patient has known COPD and is oxygen dependent at home. He continues to smoke. He is prescribed Breo Ellipta, Proair and a rescue inhaler at home. He admits to compliance at home. His lung exam reveals bilateral coarse crackles that are slightly improved today and likely related to his CHF exacerbation. Plan: Continue respiratory care, budesinide, duo-nebs and incentive spirometry. (4) Tobacco dependence Impression: The patient admits to using tobacco for his entire life and continues to smoke. He is agreeable to a nicotine patch and he is currently using this. Plan: Continue daily nicotine patch. (5) Fall Impression: The patient states that he has been falling more often lately without injury, but has been able to get back up on his own. For the fall prior to admission, he fell and felt too weak to get back up, so was able to call for help. Plan: Continue fall precautions, PT to evaluate after medically clear. Qualifiers: Encounter type: subsequent encounter Qualified Code(s): W19.XXXD - Unspecified fall, subsequent encounter (6) Hyponatremia Impression: The patient is found to have a low sodium of 121 on admission that is improved slightly at 127 today. This was likely reflected by his fluid status being overloaded. Plan: daily labs, continue IV lasix, oral Spironolactone. (7) Suicidal ideations Impression: In reviewing the chart and with the confirmation from the patient's friend, a similar thing happened about 3 years ago on the anniversary of the loss of his in which he had a gun and a suicide note. He notes that "things just did not go his way", and he has not been able to carry out this wish of killing hi mself. He claims that he no longer has anyone to live for since loosing his . Today the patient continues to be frequently tearful, complains of ongoing anxiety and states that he still feels hopeless, because now the "state will be involved" with his suicide thoughts. Plan: Continue 1:1 and re-assess. Social work to follow. (8) Depression Impression: The patient states that he has struggled with worsening depression since the loss of his 4 years ago. He is not prescribed any medication at home for this. Plan: Continue 1:1 sitter, suggest Palliative cares. Offer morphine to ease breathing, and Lorazepam to control anxiety.
[2018-03-06] MEDS ORDERED: LORazepam 0.5 MG TABLET PO PRN (12:21)
[2018-03-06] MEDS ORDERED: MORPHINE SOL 10 MG/0.5 ML SYRINGE PO PRN (12:21)
[2018-03-06] MEDS: ALPRAZolam 0.25 MG TABLET PO PRN (12:34)
[2018-03-06] MEDS: ATORVASTATIN 40 MG TABLET PO SCH (21:23)
[2018-03-07] MEDS: ACETAMINOPHEN 325 MG TABLET PO PRN (04:03)
[2018-03-07] MEDS: ALPRAZolam 0.25 MG TABLET PO PRN (04:03)
[2018-03-07 05:33] LABS: BASOPHILS # (AUTO) 0.1 10^3/uL (0.0-0.1); EOSINOPHILS # (AUTO) 0.2 10^3/uL (0.0-0.7); EOSINOPHILS % (AUTO) 2.6 %; LYMPHOCYTES # (AUTO) 0.7 10^3/uL (1.5-3.5); LYMPHOCYTES % (AUTO) 9.9 %; MEAN CORPUSCULAR HEMOGLOBIN 32.3 pg (27.0-31.0); MEAN PLATELET VOLUME 7.7 fL (7.4-11.4); MONOCYTES # (AUTO) 0.9 10^3/uL (0.0-1.0); MONOCYTES % (AUTO) 13.4 %; NEUTROPHILS # (AUTO) 4.9 10^3/uL (1.5-6.6); NEUTROPHILS % (AUTO) 73.1 %; PLT - PLATELET COUNT 272 10^3/uL (130-450); RED BLOOD COUNT 4.01 10^6/uL (4.70-6.10); RED CELL DISTRIBUTION WIDTH 13.6 % (12.0-15.0); WHITE BLOOD COUNT 6.7 x10^3/uL (4.8-10.8)
[2018-03-07] MEDS: SODIUM CHLORIDE FLUSH 0.9% 10 ML SYRINGE IVP PRN (05:46)
[2018-03-07] MEDS: FUROSEMIDE 40 MG/4 ML VIAL IVP SCH (05:46)
[2018-03-07 05:49] LABS: ALBUMIN 3.3 g/dL (3.2-5.5); ALBUMIN/GLOBULIN RATIO 1.2 (1.0-2.2); BILIRUBIN,TOTAL 0.8 mg/dL (0.2-1.0); CALCIUM 8.7 mg/dL (8.5-10.3); CREATININE 1.1 mg/dL (0.6-1.2)
[2018-03-07] MEDS: IPRATROPIUM/ALBUTEROL 3 ML NEB INH SCH ×4 (07:45→22:47)
[2018-03-07] MEDS: BUDESONIDE 0.5 MG/2 ML NEB INH SCH ×2 (07:45→22:46)
[2018-03-07] MEDS: FAMOTIDINE 20 MG TABLET PO SCH ×2 (09:06→20:45)
[2018-03-07] MEDS: CHOLECALCIFEROL 400 UNIT TABLET PO SCH (09:06)
[2018-03-07] MEDS: diltiaZEM CD 180 MG CAPSULE PO SCH (09:06)
[2018-03-07] MEDS: ASPIRIN 325 MG TABLET PO SCH (09:06)
[2018-03-07] MEDS: SODIUM CHLORIDE FLUSH 0.9% 10 ML SYRINGE IVP SCH ×3 (09:21→20:45)
[2018-03-07] MEDS: NICOTINE 14 MG PATCH TOP SCH (09:21)
[2018-03-07] MEDS: ENOXAPARIN 40 MG/0.4 ML SYRINGE SUBQ SCH (09:21)
[2018-03-07] MEDS: POLYETHYLENE GLYCOL 3350 17 GM PACKET PO SCH (09:21)
[2018-03-07] MEDS: SPIRONOLACTONE 25 MG TABLET PO SCH (09:35)
--- NOTE | 2018-03-07 17:49 | PROVIDER PROGRESS NOTE ---
Subjective - Prog Note Date Prog Note Date: 03/07/18 Prog Note Time: 17:49 - Subjective Pt reports feeling: Improved Subjective: Jaime complains of anxiety and not being able to return home with his recent suicide ideation. He denies chest pain, shortness of breath, dizziness, nausea, vomiting, a rash, bleeding, or a new cough. Current Medications - Current Medications Current Medications: Active Medications: Acetaminophen (Tylenol) 650 mg PO Q4HR PRN Hydrocodone Bitart/Acetaminophen ([place] 5/325) 1 tab PO Q4HR PRN Albuterol/Ipratropium (Duoneb) 3 ml INH Q4HR PRN Albuterol/Ipratropium (Duoneb) 3 ml INH RTQID LUIS ENRIQUE l Alprazolam (Xanax) 0.25 mg PO Q6HR PRN Aspirin (Jass) 325 mg PO DAILY LUIS ENRIQUE Atorvastatin Calcium (Lipitor) 40 mg PO QPM LUIS ENRIQUE Budesonide (Pulmicort) 0.5 mg INH RTBID [facility] Cholecalciferol (Vitamin D3) 400 unit PO DAILY [facility] Diltiazem HCl (Cardizem Cd) 180 mg PO DAILY [facility] Famotidine (Pepcid) 20 mg PO BID LUIS ENRIQUE Furosemide (Lasix) 20 mg PO DAILY [facility] Lidocaine HCl (Xylocaine Uro-Jet 2%) 2.5 ml UR Q6H PRN Lorazepam (Ativan) 0.5 mg PO Q6H PRN Morphine Sulfate (Morphine (Carpuject)) 2 mg IVP Q2HR PRN Morphine Sulfate (Roxanol) 5 mg PO Q2HR PRN Nicotine (Nicoderm) 1 patch TOP DAILY [facility] Ondansetron HCl (Zofran Inj) 4 mg IVP Q6HR PRN Polyethylene Glycol (Miralax) 17 gm PO DAILY [facility] Promethazine HCl (Phenergan Inj) 25 mg IM Q6HR PRN Spironolactone (Aldactone) 25 mg PO DAILY LUIS ENRIQUE Temazepam (Restoril) 15 mg PO QPM PRN HOME meds: Aspirin 325 mg PO DAILY 01/01/14 Ipratropium/Albuterol Sulfate [Combivent Respimat Inhal [place]] 1 puffs INH QID 01/01/14 Albuterol Sulfate [Proair Hfa Inhaler] 2 puffs INH Q6H PRN 03/05/18 Atorvastatin Calcium 40 mg PO QPM 03/05/18 Cholecalciferol (Vitamin D3) [Vitamin D3] 400 units PO DAILY 03/05/18 Enalapril Maleate 10 mg PO DAILY 03/05/18 Fluticasone/Vilanterol [Breo Ellipta 200-25 Mcg INH] 1 puffs INH BID 03/05/18 Spironolactone 25 mg PO DAILY 03/05/18 diltiaZEM CD [Cardizem Cd] 180 mg PO DAILY 03/05/18 Objective - Vital Signs/Intake & Output Reviewed Vital Signs: Yes Vital Signs: Vital Signs x48h Pulse Resp 03/07/18 15:10 78 16 Intake & Output: Intake & Output 03/04/18 03/05/18 03/06/18 03/07/18 23:59 23:59 23:59 23:59 Intake Total 700 1140 600 Output Total 1625 2625 400 Balance -925 -1485 200 - Objective General Appearance: positive: Alert, Mild distress, Anxious Eyes Bilateral: positive: PERRL Eyes: OU Lid inflammation (mild) ENT: positive: Pharynx nml, Dry mucous membranes Neck: positive: No JVD, Trachea midline Respiratory: positive: Chest non-tender, No respiratory distress, Other (congested) Cardiovascular: positive: Regular rate & rhythm, No gallop, Systolic murmur, Decreased pulse(s) Peripheral Pulses: 1+ Radial (R), 1+ Radial (L) Abdomen: positive: Non-tender, Nml bowel sounds Back: positive: Nml inspection Skin: positive: No rash, Warm, Dry Extremities: positive: Non-tender, Pedal edema (chronic BLE), Joint swelling Neurologic/Psychiatric: positive: Oriented x3, CN's nml (2-12), Motor nml, Sensation nml, Weakness, Depressed mood/affect, Other (baseline depression) Reflexes: Bicep (R): 3+, Bicep (L): 3+ - Lab Results Fish Bones: 03/07/18 05:22 03/07/18 05:22 Other Labs: Lab Results x24hrs 03/07/18 03/07/18 03/07/18 Range/Units 05:22 05:22 05:22 WBC 6.7 (4.8-10.8) x10^3/uL RBC 4.01 L (4.70-6.10) 10^6/uL Hgb 13.0 L (14.0-18.0) g/dL Hct 38.1 L (42.0-52.0) % MCV 95.0 H (80.0-94.0) fL MCH 32.3 H (27.0-31.0) pg MCHC 34.0 (32.0-36.0) g/dL RDW 13.6 (12.0-15.0) % Plt Count 272 (130-450) 10^3/uL MPV 7.7 (7.4-11.4) fL Neut # (Auto) 4.9 (1.5-6.6) 10^3/uL Lymph # (Auto) 0.7 L (1.5-3.5) 10^3/uL [place] # (Auto) 0.9 (0.0-1.0) 10^3/uL Eos # (Auto) 0.2 (0.0-0.7) 10^3/uL Baso # (Auto) 0.1 (0.0-0.1) 10^3/uL Absolute Nucleated RBC 0.00 x10^3/uL Nucleated RBC % 0.0 /100WBC Sodium 129 L (135-145) mmol/L Potassium 3.8 (3.5-5.0) mmol/L Chloride 90 L (101-111) mmol/L Carbon Dioxide 28 (21-32) mmol/L Anion Gap 11.0 (6-13) BUN 23 H (6-20) mg/dL Creatinine 1.1 (0.6-1.2) mg/dL Estimated GFR (MDRD) 65 L (>89) Glucose 107 H (70-100) mg/dL Calcium 8.7 (8.5-10.3) mg/dL Total Bilirubin 0.8 (0.2-1.0) mg/dL AST 34 (10-42) IU/L ALT 22 (10-60) IU/L Alkaline Phosphatase 81 (42-121) IU/L B-Natriuretic Peptide 178 H (5-100) pg/mL Total Protein 6.0 L (6.7-8.2) g/dL Albumin 3.3 (3.2-5.5) g/dL Globulin 2.7 (2.1-4.2) g/dL Albumin/Globulin Ratio 1.2 (1.0-2.2) ABX Reporting Has patient been on IV antibiotics over the past 48 hours?: No Sepsis Event Note (H) - Evaluation Current Stage of Sepsis: Ruled out Assessment/Plan - Problem List (1) Metabolic encephalopathy Impression: This condition is generally improved if not resolved today. He has much less tearful moments. He still becomes easily distracted and talks about things out of context, but this too is overall improved. A contributing factor may be due to being hyponatremic, but this is thought to be nearly resolved today. He has underlying anxiety, which he has been treated for with Xanax as needed. Plan: Continue to monitor, give medication for anxiety. (2) CHF exacerbation Impression: The patient has less congestion on exam today, continues on oxygen at his home rate, abdominal edema, and chronic BLE edema. Imaging on admission showed no pleural effusions, but based on history and physical findings, the patient was thought to be having an exacerbation. An old echo from 2014 showed a reduced EF of 50-55%, mild LVH and pulmonary hypertension and results show an EF of 50%. He is on diltiazem for rate control at home, which continues here. Plan: Lasix, continue home spironolactone, daily weights, etc. Qualifiers: Heart failure type: combined systolic and diastolic Qualified Code(s): I50.43 - Acute on chronic combined systolic (congestive) and diastolic (congestive) heart failure (3) Moderate chronic obstructive pulmonary disease Impression: The patient has known COPD and is oxygen dependent at home. He continues to smoke. He is prescribed Breo Ellipta, Proair and a rescue inhaler at home. He admits to compliance at home. His lung exam reveals bilateral scattered crackles and likely related to his CHF exacerbation. Plan: Continue respiratory care, budesinide, duo-nebs and incentive spirometry. (4) Tobacco dependence Impression: The patient admits to using tobacco for his entire life and continues to smoke. He is agreeable to a nicotine patch and he is currently using this. Plan: Continue daily nicotine patch. (5) Fall Impression: The patient states that he has been falling more often lately without injury, but has been able to get back up on his own. For the fall prior to admission, he fell and felt too weak to get back up, so was able to call for help. Plan: Continue fall precautions. Qualifiers: Encounter type: subsequent encounter Qualified Code(s): W19.XXXD - Unspecified fall, subsequent encounter (6) Hyponatremia Impression: The patient is found to have a low sodium of 121 on admission that is improved slightly at 129 today. This was likely reflected by his fluid status being overloaded. Plan: daily labs, continue IV lasix, oral Spironolactone. (7) Suicidal ideations Impression: In reviewing the chart and with the confirmation from the patient's friend, a similar thing happened about 3 years ago on the anniversary of the loss of his in which he had a gun and a suicide note. He notes that "things just did not go his way", and he has not been able to carry out this wish of killing himself. He claims that he no longer has anyone to live for since loosing his . The patient continues to complain of ongoing anxiety and states that he still feels hopeless, because now the "state will be involved" with his suicide thoughts. A case technician from the [facility] has evaluated for a safe discharge, which will be arranged by morning with his daughter who is en route from [place]. With a lack of safety plan, his discharge was delayed by one day. Plan: Social work to follow. (8) Depression Impression: The patient states that he has struggled with worsening depression since the loss of his 4 years ago. He is not prescribed any medication at home for this. The patient is thankful for the information of Palliative care and wishes for a consult. Plan: Consult Palliative care. Offer morphine to ease breathing, and Lorazepam to control anxiety.
[2018-03-07] MEDS: ATORVASTATIN 40 MG TABLET PO SCH (20:45)
[2018-03-08 04:02] LABS: BASOPHILS # (AUTO) 0.1 10^3/uL (0.0-0.1); BASOPHILS % (AUTO) 1.4 %; EOSINOPHILS # (AUTO) 0.2 10^3/uL (0.0-0.7); HGB - HEMOGLOBIN 13.6 g/dL (14.0-18.0); LYMPHOCYTES # (AUTO) 0.9 10^3/uL (1.5-3.5); LYMPHOCYTES % (AUTO) 12.9 %; MEAN CORPUSCULAR HEMOGLOBIN 32.6 pg (27.0-31.0); MEAN CORPUSCULAR VOLUME 95.8 fL (80.0-94.0); MEAN PLATELET VOLUME 7.5 fL (7.4-11.4); MONOCYTES # (AUTO) 0.9 10^3/uL (0.0-1.0); MONOCYTES % (AUTO) 12.1 %; NEUTROPHILS % (AUTO) 70.6 %; PLT - PLATELET COUNT 292 10^3/uL (130-450); RED BLOOD COUNT 4.17 10^6/uL (4.70-6.10); RED CELL DISTRIBUTION WIDTH 13.6 % (12.0-15.0); WHITE BLOOD COUNT 7.1 x10^3/uL (4.8-10.8)
[2018-03-08 04:13] LABS: ALBUMIN 3.6 g/dL (3.2-5.5); ALBUMIN/GLOBULIN RATIO 1.4 (1.0-2.2); CALCIUM 8.7 mg/dL (8.5-10.3); CREATININE 1.3 mg/dL (0.6-1.2); TOTAL PROTEIN 6.2 g/dL (6.7-8.2)
[2018-03-08] MEDS: IPRATROPIUM/ALBUTEROL 3 ML NEB INH SCH ×2 (08:15→11:20)
[2018-03-08] MEDS: BUDESONIDE 0.5 MG/2 ML NEB INH SCH (08:15)
[2018-03-08] MEDS: ASPIRIN 325 MG TABLET PO SCH (08:18)
[2018-03-08] MEDS: FAMOTIDINE 20 MG TABLET PO SCH (08:18)
[2018-03-08] MEDS: diltiaZEM CD 180 MG CAPSULE PO SCH (08:18)
[2018-03-08] MEDS: CHOLECALCIFEROL 400 UNIT TABLET PO SCH (08:18)
[2018-03-08] MEDS: NICOTINE 14 MG PATCH TOP SCH (08:18)
[2018-03-08] MEDS: SPIRONOLACTONE 25 MG TABLET PO SCH (08:18)
[2018-03-08] MEDS ORDERED: FUROSEMIDE 20 MG TABLET PO SCH (09:00)
[2018-03-08 09:38] VITALS: BP 149/92
[2018-03-08] MEDS: POLYETHYLENE GLYCOL 3350 17 GM PACKET PO SCH (09:40)
[2018-03-08] MEDS: SODIUM CHLORIDE FLUSH 0.9% 10 ML SYRINGE IVP SCH (09:41)
--- NOTE | 2018-03-08 12:00 | Discharge Plan ---
Discharge Plan Disposition: Home, Self Care Condition: Good Prescriptions: Enalapril [Vasotec] 5 mg PO DAILY #30 tablet Furosemide 20 mg PO DAILY #30 tablet Lorazepam [Ativan] 0.5 mg PO Q6H PRN #25 tablet PRN Reason: Anxiety Nicotine 14 mg Patch [Nicoderm] 1 patch TOP DAILY #7 patch Diet: Cardiac Activity Restrictions: Activity as Tolerated Shower Restrictions: No Weight Bearing: Full Weight Additional Instructions or Follow Up instructions: You were admitted and treated for a congestive heart failure exacerbation. You should remain on the Spironolactone and low dose lasix which is a nice complement (they work well together). There have been no other medication changes. We have been very concerned with your mental well being, so social work and a designated crisis responder was involved after you were medically cleared to ensure a safe discharge. I have made a Palliative care consult and I suspect that the first contact may be the day after [place], March 11, 2018. The Palliative care office phone number is [phone] and their office is open Friday-Friday from 8-5pm. You have been given a prescription for your anxiety, and nicotine patches have been sent to the pharmacy. Please see your PCP within one week. No Smoking: If you smoke, Please STOP! Call for help. Follow-up with: Cori Dean ARNP [Primary Care Provider] -
--- NOTE | 2018-03-08 12:13 | DISCHARGE SUMMARY ---
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 Metabolic encephalopathy (G93.41) resolved. Suicidal ideations (R45.851) resolved. Hyponatremia (E87.1) resolved. Fall (W19.XXXA) chronic, stable. 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 Depression (F32.9) chronic, stable. Anxiety (F41.9) chronic, stable. Dependence on supplemental oxygen (Z99.81)chronic, stable. Encounter for palliative care (Z51.5) new on this admission, Palliative care was alerted. - HPI History of Present Illness: Mendoza Medrano is a ill appearing 77-year old male with a past medical history of CHF, hypertension, atrial flutter, COPD, tobacco dependence, oxygen dependence, falls, depression, anxiety, previous suicide attempts and nocturia. The patient called for help after falling to his knees from becoming too weak at home. He has frequent care givers to help with house work and meals. Once the EMS arrived, the patient was found on the floor and was conscious. Rescue workers found a suicide note with a pistol on the kitchen table. He was transported to the ED and was found to be hypoxic, and slightly confused. His friend Yanick, who the patient claims to be his "best friend" is present for the initial exam and states that he is very concerned for his well being. On exam the patient is only mildly agitated, but could not attest to no longer being suicidal. In fact, he claimed that he was quite upset that he had to fall to the floor before getting this task completed and became tearful multiple times during my time with him. He is on oxygen, has an unkept appearance, poor dentition, has equal weakness in all 4 extremities, and smells of urine. He denies recent illness, fever, chills, vomiting, diarrhea, rashes, h allucinations, or a new cough. Labs showed a low H/H of 13.8/39.0, a normal WBC, a low sodium of 121, a negative troponin with no other lab abnormalities. He will be admitted for further work up to inpatient with a 1:1 sitter, worrisome for continued suicidal ideation. - CONSULTS | PROCEDURES Consultations: Palliative care-Rosalba Sharp - HOSPITAL COURSE Hospital Course: The patient was treated for a CHF exacerbation and was given diuretics, nebulizers and this stabilized after 48 hours of hospital stay. He remained with a 1:1 sitter for suicidal ideation. Social work followed and he was medically cleared. He wished for a Palliative care consult, which was made to be started after the holidays and he agreed to continue his medications at home. - ALLERGIES Allergies/Adverse Reactions: Allergies Allergy/AdvReac Type Severity Reaction Status Date / Time No Known Drug Allergies Allergy Verified 03/05/18 12:27 - MEDICATIONS Home Medications: Ambulatory Orders Medication Instructions Recorded Confirmed Aspirin 325 mg PO DAILY 01/01/14 03/05/18 Ipratropium/Albuterol Sulfate 1 puffs INH QID 01/01/14 03/05/18 [Combivent Respimat 20-100 Mcg] Albuterol Sulfate [Proair Hfa 2 puffs INH Q6H PRN 03/05/18 03/05/18 Inhaler] Atorvastatin Calcium 40 mg PO QPM 03/05/18 03/05/18 Cholecalciferol (Vitamin D3) 400 units PO DAILY 03/05/18 03/05/18 [Vitamin D3] Fluticasone/Vilanterol [Breo 1 puffs INH BID 03/05/18 03/05/18 Ellipta 200-25 Mcg INH] Spironolactone 25 mg PO DAILY 03/05/18 03/05/18 diltiaZEM CD [Cardizem Cd] 180 mg PO DAILY 03/05/18 03/05/18 Enalapril [Vasotec] 5 mg PO DAILY #30 tablet 03/08/18 Furosemide 20 mg PO DAILY #30 tablet 03/08/18 Lorazepam [Ativan] 0.5 mg PO Q6H PRN #25 tablet 03/08/18 Nicotine 14 mg Patch [Nicoderm] 1 patch TOP DAILY #7 patch 03/08/18 - PHYSICAL EXAM AT DISCHARGE General Appearance: positive: No acute distress, Alert, Anxious Eyes Bilateral: positive: PERRL ENT: positive: Pharynx nml, No signs of dehydration Neck: positive: Thyroid nml, No JVD, Trachea midline Respiratory: positive: Chest non-tender, No respiratory distress, Other (crackles bilaterally) Cardiovascular: positive: Regular rate & rhythm, No gallop, Systolic murmur, Decreased pulse(s) Peripheral Pulses: positive: 1+ Abdomen: positive: Non-tender, Nml bowel sounds, Other (rounded, soft) Back: positive: Nml inspection Skin: positive: No rash, Warm, Dry, Pallor Extremities: positive: Non-tender, Pedal edema, Joint swelling, Other (dry, flakey skin BLE, chronic edema that his much less than at the time of admission.) Neurologic/Psychiatric: positive: Oriented x3, CN's nml (2-12), Motor nml, Sensation nml, Slurred/abnml speech (sluggish speech at times.), Depressed mood/affect Reflexes: Bicep (R): 3+, Bicep (L): 3+ - LABS Result Diagrams: 03/08/18 03:49 03/08/18 03:49 - SEPSIS Current Stage of Sepsis: Ruled out - FOLLOW UP Follow Up: Disposition: Home Condition: Good Prescriptions: Enalapril [Vasotec] 5 mg PO DAILY #30 tablet Furosemide 20 mg PO DAILY #30 tablet Lorazepam [Ativan] 0.5 mg PO Q6H PRN #25 tablet PRN Reason: Anxiety Nicotine 14 mg Patch [Nicoderm] 1 patch TOP DAILY #7 patch Diet: Cardiac Activity Restrictions: Activity as Tolerated Additional Instructions or Follow Up instructions: You were admitted and treated for a congestive heart failure exacerbation. You should remain on the Spironolactone and low dose lasix which is a nice complement (they work well together). There have been no other medication changes. We have been very concerned with your mental well being, so social work and a designated crisis responder was involved after you were medically cleared to ensure a safe discharge. I have made a Palliative care consult and I suspect that the first contact may be the day after , March 11, 2018. The Palliative care office phone number is [phone] and their office is open Friday-Friday from 8-5pm. You have been given a prescription for your anxiety, and nicotine patches have been sent to the pharmacy. Please see your PCP within one week. - TIME SPENT Time Spent in Discharge (Minutes): 60
== END 2018-03-08 15:40 | disposition home or self-care (01) | DRG 291 ==
LOC: EDUNIT# → ED 12:06 → MS2 17:10 → MS3 03-06 10:51
PROVIDERS: ADMIT Nurse Practitioner; ATTEND Nurse Practitioner
DX: J44.1 Chronic obstructive pulmonary disease with (acute) exacerbation (principal); I11.0 Hypertensive heart disease with heart failure; G93.41 Metabolic encephalopathy; F41.0 Panic disorder [episodic paroxysmal anxiety]; I10 Essential (primary) hypertension; E87.1 Hypo-osmolality and hyponatremia; R45.851 Suicidal ideations; I48.92 Unspecified atrial flutter; I50.43 Acute on chronic combined systolic (congestive) and diastolic (congestive) heart failure; J44.9 Chronic obstructive pulmonary disease, unspecified; F32.9 Major depressive disorder, single episode, unspecified; F17.210 Nicotine dependence, cigarettes, uncomplicated; F41.9 Anxiety disorder, unspecified; F43.10 Post-traumatic stress disorder, unspecified; Z99.81 Dependence on supplemental oxygen; E78.5 Hyperlipidemia, unspecified; I48.91 Unspecified atrial fibrillation; I25.10 Atherosclerotic heart disease of native coronary artery without angina pectoris; I73.9 Peripheral vascular disease, unspecified; G47.30 Sleep apnea, unspecified; F03.90 Unspecified dementia, unspecified severity, without behavioral disturbance, psychotic disturbance, mood disturbance, and anxiety; G62.9 Polyneuropathy, unspecified; K21.9 Gastro-esophageal reflux disease without esophagitis; M19.90 Unspecified osteoarthritis, unspecified site; G89.29 Other chronic pain; M54.9 Dorsalgia, unspecified; R53.83 Other fatigue; R35.0 Frequency of micturition; R35.1 Nocturia; H54.7 Unspecified visual loss; H91.90 Unspecified hearing loss, unspecified ear; G56.02 Carpal tunnel syndrome, left upper limb; Z66 Do not resuscitate; Z51.5 Encounter for palliative care; Z79.51 Long term (current) use of inhaled steroids; Z79.82 Long term (current) use of aspirin; Z91.81 History of falling; Z98.61 Coronary angioplasty status; Z87.01 Personal history of pneumonia (recurrent)
CPT/HCPCS: 36415; 71046; 71275; 80053; 80306; 80307; 80320; 80329; 83605; 83690; 83735; 83880; 84100; 84484; 85025; 87040; 87070; 87205; 87275; 87276; 93005; 93306; 94640; 96374; 99284

== ENCOUNTER 2018-03-27 13:47 | Outpatient (CLI) | payer MEDICARE, OTHER ==
--- NOTE | 2018-03-27 13:50 | CONSULTATION NOTE ---
Palliative Care Consultation - Referral Referring Provider: MANDEEP Mckay Time of Visit: 03/27/2018. 10:15 - 12:10 Referral setting: Home (Seen in home setting due to taxing and considerable effort required to leave the home due to his severe, chronic SOA secondary to COPD and CHF.) Referral Reason: Chronic SOA, fatigue - Information Sources Records reviewed: Previous records reviewed History/Review of Systems obtained from: Patient Exam limitations: Clinical condition (SOA with effort of speaking) - History of Present Illness Brief History of Present Illness: 77-year-old gentleman, EMS was called 03/05/18 when patient fell secondary to CHF exacerbation and hyponatremia. When EMS arrived they found him in the kitchen with a pistol on the table and a suicide note. He was taken to [facility] and treated for CHF exacerbation, hyponatremia and metabolic encephalopathy and discharged home 03/08/18. Hospital SW confirmed with Officer Stiven that weapon and ammunition had been removed from the patient's home and patient was safe with caregiver support Medical history: CHF, COPD with oxygen dependence 2L/min, HTN, atrial flutter, tobacco dependence, h/o recurrent falls, depression, anxiety, nocturia, urinary frequency, previous suicide attempts. Patient is very pleasant and talkative with stories to tell. He does admit that speaking at length makes him short of air, but "I can't help myself." When asked about his suicide ideation, patient admitted that suicide is a theme he has thought of throughout his life. He has spoken to his close friends and his stepchildren about this and his wish to eventually take his own life. He has no immediate plans to do so, but stresses again this is a thing he has thought about often throughout the years and a way he has dealt with depression his entire life. He has not used medication for depression and times of stress, but he has his "internal ways" of dealing with it. His four years ago at [facility], so the holidays are always difficult At different points in time he has had some counseling, notably in 1979 and 1990. He has not used antidepressants in the past, or just for a very short period. He is not interested at this time in starting them, but indicated that he is not totally opposed or closed to possibly trying them in the future. He states that when he spoke to his stepchildren about his desire to end his life they were understanding, with the exception of his daughter, Teresa, with whom he is especially close. He finds she has not been able to calmly talk about it, but they recently had a very open discussion where she divulged information to him that made it much more clear why she had a strong reaction to his desire to end his life. He does say that he does not want to cause pain and difficulty for his step children or grandchildren, who are dear to him. His biggest medical concern is fatigue, he "runs out of steam" usually around 4:00pm. We discussed keeping a journal to track of his patterns during the day, and use it to learn to "budget" his energy and strength and to arrange his schedule so he maximizes his energy and works with his circadian patterns. He reports SOA with exertion and decreased exercise tolerance, but is fine when he is sedentary and not exerting himself in any way, for instance by reading. He has been sleeping on his lounge sofa for about 2 years due to SOA. When I asked if he was interested in a recliner instead, he says the current setup is actually working well for him and feels he gets sufficient sleep, a total of about 9 hours a night. He gets up every 3 hours or so to use the bathroom. He has chronic carpal tunnel pain in L wrist, pain uncontrolled. He uses Advil 200 about 3-4 x per week for some relief. He has a physician executive, Dr Jose M Reyna at [facility], but hasn't seen him lately nor does he plan to. Medical/Surgical History - Past Medical History Cardiovascular: reports: Congestive heart failure, Hypertension, High cholesterol, Coronary artery disease, Peripheral Vascular Disease, Atrial flutter, Atrial fibrillation, Murmur, Arrhythmia Respiratory: reports: Asthma, COPD, Pneumonia, Shortness of breath, Sleep apnea, Other (chronic home oxygen at 2L via nasal cannula.) Neuro: Dementia, Headaches, Peripheral neuropathy, Tremors Neuro: reports: Tremors Endocrine/Autoimmune: reports: None GI: reports: GERD : reports: None, Nocturia, Frequency HEENT: reports: Chronic vision loss, Chronic hearing loss Psych: reports: Depression, Anxiety, Post traumatic stress disorder Musculoskeletal: reports: Osteoarthritis, Fatigue, Chronic back pain, Other (chronic carpel tunnel discomfort in dominant Left wrist) Derm: reports: None MRSA Hx?: No - Past Surgical History Cardiovascular: reports: Angioplasty - Substance History Use: Uses substance without health or social issues: Alcohol (moderate, daily use), Cannabis (THC oral gummies twice daily) Dependence: Experiences withdrawal or developed tolerances: Tobacco Tobacco Details: Cigarettes (1 or more PPD currently) Social History - Living Situation Living arrangement: At home Living Situation: Alone Support System: He is from a farm in [place]. 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 He is from his second , Pauline, whom he met in 1989. She of sepsis in February 2014. She had 5 adult children with whom he is close, as well as the step-grandchildren. Yanick and Veronica Bhagat, , are close friends and live on [address]. Teresa Aquino, , is his stepdaughter and his DPOA. He didn't have the DPOA papers available, but says he has them somewhere. I provided a blank POA form just in case he isn't able to find the current copy. Lillian Kumar, [phone], is his neighbor and caregiver. She comes 3 days a week for 2-3 hours, helps with caregiving and housekeeping. Family History - Family History Family History Comment/Other: Mother age 84 (1995) of CHF. Father age 85 (1990) of CHF. One brother in his 60s of diabetes. The other brother, age 73, is living, and in remission for throat cancer. Medications/Allergies - Medications Home Medications: Ambulatory Orders Medication Instructions Recorded Confirmed Aspirin 325 mg PO DAILY 01/01/14 03/27/18 Ipratropium/Albuterol Sulfate 1 puffs INH QID 01/01/14 03/27/18 [Combivent Respimat 20-100 Mcg] Atorvastatin Calcium 40 mg PO QPM 03/05/18 03/27/18 Cholecalciferol (Vitamin D3) 400 units PO DAILY 03/05/18 03/27/18 [Vitamin D3] Fluticasone/Vilanterol [Breo 1 puffs INH BID 03/05/18 03/27/18 Ellipta 200-25 Mcg INH] Spironolactone 25 mg PO DAILY 03/05/18 03/27/18 diltiaZEM CD [Cardizem Cd] 180 mg PO DAILY 03/05/18 03/27/18 Furosemide 20 mg PO DAILY #30 tablet 03/08/18 03/27/18 Lorazepam [Ativan] 0.5 mg PO Q6H PRN #25 tablet 03/08/18 03/27/18 Acetaminophen 1,000 mg PO .BID-TID PRN 03/27/18 03/27/18 Enalapril [Vasotec] 10 mg PO DAILY 03/27/18 03/27/18 Thc Edible Gummies 1 ea PO BID PRN 03/27/18 Thc Salve 1 ea TOP DAILY PRN 03/27/18 - Allergies Allergies/Adverse Reactions: Allergies Allergy/AdvReac Type Severity Reaction Status Date / Time No Known Drug Allergies Allergy Verified 03/05/18 12:27 Review of Systems - Constitutional Constitutional: reports: Fatigue, Weakness, Night sweats (episodic), Weight loss (190 lbs 03/11/18. BMI 25.8) - Eyes Eyes: reports: Vision loss, Corrective lenses - Ears, Nose & Throat Ears, Nose & Throat: reports: Other (bad taste in mouth) - Cardiovascular Cardiovascular: reports: Palpitations, Chest pain, Edema - Respiratory Respiratory: reports: Cough (chronic), Wheezing, SOB with exertion - Gastrointestinal Gastrointestinal: reports: Diarrhea (occasional explosive diarrhea), Change in bowel habits, Other (sometimes has dark stools). denies: Poor appetite - Genitourinary Genitourinary: reports: Frequency, Urgency, Incontinence - Musculoskeletal Musculoskeletal: reports: Stiffness, Muscle weakness, Joint pain (L wrist), Other (difficulty walking; stiff, slow gait) - Integumentary Integumentary: reports: Rash - Neurological Neurological: reports: Headache, Memory problems, Other (tremors in hands when tired) - Psychiatric Psychiatric: reports: Depression, Anxiety Physical Exam - Vital Signs Temperature: 96.2 F Pulse Rate: 82 O2 Saturation: 95 (2L O2 via nasal cannula) Blood Pressure: 165/94 - Physical Exam General Appearance: positive: No acute distress, Alert Eyes Bilateral: positive: No lid inflammation, Conjunctivae nml, No scleral icterus ENT: positive: No signs of dehydration Neck: positive: Trachea midline Cardiovascular: positive: Regular rate & rhythm, No murmur, No gallop Respiratory: positive: Chest non-tender, No respiratory distress, Diminished throughout (significantly diminished) Skin: positive: Dryness, Bruising Extremities: positive: Pedal edema (2+, doesn't like to put on compression stockings; encouraged elevation) Neurologic/Psychiatric: positive: Oriented x3, Mood/affect nml Palliative Care - POLST Patient has POLST: Yes POLST Status: DNR, Selective Treatment Pain: Location (L wrist), Comment (mild (3/10)) Tiredness/Fatigue: Moderate (4-6) Drowsiness/Sedation: Moderate (4-6) Nausea: None Dyspnea: Severe (7-10) Anorexia: Mild (1-3) Performance Status: On 2L continual oxygen via nasal cannula. Doesn't have a nebulizer. Ambulates in the house, slow, careful gait. Unable to go out to the mailbox due to significant SOA with exertion. Urinary frequency and nocturia. Caregiver/gallery or museum curator comes 3x/week 2-3 hours Ongoing depression, lifelong. 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 He says he may seem unemotional about some things, but had to learn to compartmentalize the emointal reactions to these scenes and experiences. Losing his , Pauline was a blow, particularly because he thinks the hospital missed the diagnosis (sepsis). He and Pauline were deeply involved in the life of the community in the [place], and apparently Pauline was an institution around the [facility]. She moved here in [place]. They headed the [employer] at one point, and were involved in many other community organizations over the years. They both loved entertaining and had a wide cocopah of friends. Nowadays he does not get out much anymore although he still drives. His social network is much smaller than it was during his life, with 3-4 close friends, with Yanick Bhagat and his being his closest friends. He has a good and close relationship with his 5 stepchildren, particularly his stepdaughter Kaitlyn. He also enjoys being a grandparent. He does admit to being to having a "raging temper" and attributes it to being a "hilary." He did say that people he used to work with said he was great but asked him to learn to reign in his temper. He denies having immediate plans for suicide, admitting that it has been a theme running through his life and something he wants to do in the future and has talked to family and friends about, but without immediate plans or intentions to do so. Teresa was not supportive of this and it triggered some what sounds like a good conversation with him. According to the patient his other friends and stepchildren listens and more understanding of what he was telling them. We discussed Hospice, which he states his was on very shortly before her . I provided teaching and anticipatory guidance of palliative care vs hospice. We discussed at length his goals of care which is that he wants to remain in his home and here too. This is the home he and his built, and it was her "dream home." He didn't have a POLST yet, so we filled it out together: DNR and selective treatment. He would want to go to the hospital if there is a reversible condition he can be treated for. He was unsure how palliative care would work with his other medical providers and didn't want it to be confusing. We agreed that Cori Dean, his fairly new PCP whom he is happy with, would be the one he would go to for his medications and scripts, and that palliative care will coordinate and communicate with the PCP for any medication or treatment recommendations. He is living independently and his current caregiver situation is working well for him. Neighbor Lillian comes about 3x/week for 2-3 hours of support, cleaning and help with errands. His close friend Yanick is also nearby. He would like to continue with the support of palliative care and stated that he thinks the service will work out well for him. Impression and Recommendations - Palliative Care Impression: 77-year-old gentleman, with history of CHF, HTN, atrial flutter, COPD on continuous oxygen, and current tobacco dependence. He was hospitalized just before [place] for CHF exacerbation, metabolic encephalopathy and hyponatremia. He has lifelong depression and suicide ideation, and the EMS found him in his kitchen with a pistol and a suicide note. His around [place] time and this was the anniversary of her . Patient stabilized and denies current suicide plan. He is generally weak and fatigued with chronic SOA with exertion. He would benefit from palliative care oversight and monitoring, with eventual transition to Hospice when appropriate. Recommendations/Counseling Done: CHF (EF 50-55% in 2015): Back to baseline. Edema 2+, recommended continued elevation of LEs. He doesn't wear compression stockings because they're difficult to get on. Suggested tubigrip, he was not interested. Continue Diltiazem, spironolactone and furosemide. Educated on keeping track of his daily routine and "energy cycles" and learning to work with his body's rhythms, scheduling errands and tasks during times he is most alert. COPD, end-stage: Chronic SOA with exertion, on 2L O2 continuously. Doesn't have nebulizer, couldn't see a reason to use one. Continue Combivent and Breo Ellipta, he reports he is using both. He is an active smoker, at least 1 pack per day, sometimes more. Carpal tunnel syndrome, L wrist: Chronic pain. Uses Advil 200 2-3x/week. Recommended trying Tylenol 1000 BID or TID, max 3000mg daily, also for his other painss and stiffness in leg. Consider splint, corticoid steroid injections. Diarrhea: Episodic. Recommended fiber tablets such as Benefiber or Good Fiber. Depression with anxiety: Appears to be at baseline. Discussed starting a slow taper of antidepressant, he wasn't interested currently, but may be open to it in the future. Denies current suicide plan, but does say suicide ideation is lifelong for him, and he has discussed this with his close friends and family and found them mostly understanding and supportive. Continue to provide support and monitoring for mood or behavior changes. Ask him if he would like referral to palliative care SW. Advance care planning: Goal of care is to remain in his home. He has social support with close friend Yanick, and a few others. He has caregiving support with Lillian, friend and neighbor. His stepdaughter, Teresa, is his healthcare DPOA. Follow up end Apr or May. Time Spent: 115 minutes were spent with more than 50% of the time spent on counseling, education, providing anticipatory guidance, and coordination of care.
== END 2018-03-27 13:48 | disposition home or self-care (01) ==
LOC: PC 13:47
PROVIDERS: ATTEND Nurse Practitioner
DX: Z51.5 Encounter for palliative care (principal); J44.9 Chronic obstructive pulmonary disease, unspecified; I11.0 Hypertensive heart disease with heart failure; I50.9 Heart failure, unspecified; F41.8 Other specified anxiety disorders; R19.7 Diarrhea, unspecified; G89.29 Other chronic pain; G56.02 Carpal tunnel syndrome, left upper limb; M54.9 Dorsalgia, unspecified; Z99.81 Dependence on supplemental oxygen; F17.210 Nicotine dependence, cigarettes, uncomplicated; I48.91 Unspecified atrial fibrillation; I48.92 Unspecified atrial flutter; R13.10 Dysphagia, unspecified; R35.1 Nocturia; Z91.5 Personal history of self-harm; R35.0 Frequency of micturition; G47.30 Sleep apnea, unspecified; H54.7 Unspecified visual loss; H91.90 Unspecified hearing loss, unspecified ear; Z72.89 Other problems related to lifestyle; Z79.82 Long term (current) use of aspirin; Z79.51 Long term (current) use of inhaled steroids; Z66 Do not resuscitate; Z87.01 Personal history of pneumonia (recurrent)
CPT/HCPCS: 99345

== ENCOUNTER 2018-05-12 16:29 | Outpatient (CLI) | payer MEDICARE, OTHER ==
--- NOTE | 2018-05-12 16:32 | CONSULTATION NOTE ---
Palliative Care Follow Up - Referral Referring Provider: MANDEEP Mckay Time of Visit: Roque 05/12/2018. 11:50-12:20 Referral setting: Home (Seen in home setting due to taxing and considerable effort required to leave the home due to his severe, chronic SOA secondary to COPD and CHF.) Referral Reason: Chronic SOA / fatigue / End stage COPD - Information Sources Records reviewed: Previous records reviewed History/Review of Systems obtained from: Patient Exam limitations: Clinical condition (SOA with speaking) - History of Present Illness Update Brief HPI Update: 77-year-old gentleman, EMS was called 03/05/18 when patient fell secondary to CHF exacerbation and hyponatremia. When EMS arrived they found him in the kitchen with a pistol on the table and a suicide note. He was taken to [facility] and treated for CHF exacerbation, hyponatremia and metabolic encephalopathy and discharged home 03/08/18. Hospital SW confirmed with Officer Stiven that weapon and ammunition had been removed from the patient's home and patient was safe with caregiver support Medical history: CHF, COPD with oxygen dependence 2L/min, depression, HTN, atrial flutter, tobacco dependence current smoker, h/o recurrent falls, anxiety, nocturia, urinary frequency, previous suicide attempts, suicide ideation. Patient slowly declining, chronic SOA with any exertion, including speaking. He denies SOA when sitting still. He reports taking his medications as prescribed, there was some mixup with the Breo Ellipta dosing, it's clarified and he is using it twice daily. Reports fatigue in late afternoon around 4pm; he has to lay down and rest. Reiterated prioritizing his activities and tasks, "budgeting" his energy and capacities. His caregiver/vacuum drier tender is his neighbor/friend Lillian who comes regularly as needed. His BP readings are elevated: today 153/96; at the initial Palliative Care visit on 03/27/18 it was 165/94. Her reports carpal tunnel of L wrist has some improvement with Tylenol 1000mg which he has been using twice daily. He's wearing a brace on the L wrist. He reports his lifelong depression is at baseline, has no current suicide ideation or plan. He does want to recuperate his pistol which the police ([place]) confiscated around [place], on the day of the anniversary of his 's . Social History - Living Situation Living arrangement: At home Living Situation: Alone Support System: He is from a farm in [place]. 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 He is from his second , Pauline, whom he met in 1989. She of sepsis in February 2014. She had 5 adult children with whom he is close, as well as the step-grandchildren. Yanick and Veronica Bhagat, , are close friends and live on [facility]. Teresa Aquino, , is his stepdaughter and his DPOA. He didn't have the DPOA papers available, but says he has them somewhere. I provided a blank POA form just in case he isn't able to find the current copy. Lillian Kumar, , is his neighbor and caregiver. She comes 3 days a week for 2-3 hours, helps with caregiving and housekeeping. Medications/Allergies - Medications Home Medications: Ambulatory Orders Medication Instructions Recorded Confirmed Aspirin 325 mg PO DAILY 01/01/14 03/27/18 Ipratropium/Albuterol Sulfate 1 puffs INH QID 01/01/14 03/27/18 [Combivent Respimat 20-100 Mcg] Atorvastatin Calcium 40 mg PO QPM 03/05/18 03/27/18 Cholecalciferol (Vitamin D3) 400 units PO DAILY 03/05/18 03/27/18 [Vitamin D3] Fluticasone/Vilanterol [Breo 1 puffs INH BID 03/05/18 03/27/18 Ellipta 200-25 Mcg INH] Spironolactone 25 mg PO DAILY 03/05/18 03/27/18 diltiaZEM CD [Cardizem Cd] 180 mg PO DAILY 03/05/18 03/27/18 Furosemide 20 mg PO DAILY #30 tablet 03/08/18 03/27/18 Lorazepam [Ativan] 0.5 mg PO Q6H PRN #25 tablet 03/08/18 03/27/18 Acetaminophen 1,000 mg PO .BID-TID PRN 03/27/18 03/27/18 Enalapril [Vasotec] 10 mg PO DAILY 03/27/18 03/27/18 Thc Edible Gummies 1 ea PO BID PRN 03/27/18 Thc Salve 1 ea TOP DAILY PRN 03/27/18 - Allergies Allergies/Adverse Reactions: Allergies Allergy/AdvReac Type Severity Reaction Status Date / Time No Known Drug Allergies Allergy Verified 03/05/18 12:27 Review of Systems - Constitutional Constitutional: reports: Fatigue, Weight loss (190 lbs 03/11/18. MBI 25.8.) - Eyes Eyes: reports: Vision loss, Corrective lenses - Cardiovascular Cardiovascular: reports: Edema, Exertional dyspnea, Decr. exercise tolerance - Respiratory Respiratory: reports: Cough (chronic), Wheezing, SOB with exertion (with speaking) - Gastrointestinal Gastrointestinal: reports: Diarrhea (occasional diarrhea) - Genitourinary Genitourinary: reports: Frequency, Nocturia. denies: Dysuria - Musculoskeletal Musculoskeletal: reports: Stiffness, Muscle weakness, Joint pain (L wrist), Transfer issues, Other (difficulty walking; stiff, slowgait) Physical Exam - Vital Signs Temperature: 96.4 F Pulse Rate: 65 O2 Saturation: 96 (2L O2) Blood Pressure: 153/96 - Physical Exam General Appearance: positive: No acute distress Eyes Bilateral: positive: No lid inflammation, Conjunctivae nml, No scleral icterus ENT: positive: No signs of dehydration Neck: positive: Trachea midline Cardiovascular: positive: Regular rate & rhythm, No murmur, No gallop Respiratory: positive: Chest non-tender, No respiratory distress, Diminished throughout, Wheezes, Rhonchi Skin: positive: Dryness Extremities: positive: Pedal edema (+2) Neurologic/Psychiatric: positive: Oriented x3, Mood/affect nml Palliative Care - POLST Patient has POLST: Yes POLST Status: DNR, Selective Treatment Pain: Location (L wrist), Severity (mild and chronic, improved with Tylenol) Tiredness/Fatigue: Severe (7-10) (starts around 4pm) Depression: Mild (1-3) (lifelong) Anxiety: Mild (1-3) Dyspnea: Moderate (4-6) Anorexia: Mild (1-3) Performance Status: Ambulatory without walker; slow, careful, stiff gait SOA with minimal exertion, so sits most of the time Isolated due to health/respiratory limitations Urinary frequency and nocturia Has help with house and tasks 3/week for several hours Chronic, lifelong depression - Palliative Care Discussion: Patient wants to recuperate his gun from the [place] police and will call them to follow up. He wonders if he needs a medical clearance. We discussed his lifelong suicide ideation. He denies any plan for self-harm at this time. What he wants is the ability to control and choose the timing of his end of life. He doesn't want to slowly deteriorate over time; he likes to say he wants to just "wake up ." He has spoken with family and friends in the past about his beliefs and desire to have the ability to choose how long he remains living. During his decades of working with the [employer] he has seen 1,000s of people decline and slowly and this has influenced his decision that he wants to retain the choice to end his life and doesn't want to go through a long, slow decline at the end of his life. He denies having a definite, current plan or timeline for ending his life. As such, he remains at risk for self harm under the right conditions, such as easy access to a firearm. We also talked about Hospice, and he voiced ambivalence and indecision about it for himself. He mistakenly assumed that Hospice is a place, and was interested to learn it is a service that come to patients in their home setting. It's important to him to remain in his home and there. We discussed the eventuality of his continued decline in health and strength, and whether he would have the financial means to pay for adequate caregiver support so that he may remain at home. He believes he would. Impression and Recommendations - Palliative Care Impression: 77-year-old gentleman, with history of CHF, HTN, atrial flutter, COPD on continuous oxygen, and current tobacco dependence. He was hospitalized just before [place] for CHF exacerbation, metabolic encephalopathy and hyponatremia. The EMS found him with a gun and a suicide note; the gun was confiscated by the police. This episode was related to the anniversary of his 's several years ago. He has significant SOA and fatigue, but stable within a context of overall decline. Patient denies current plans to harm himse lf, and he wants to recuperate his gun from the police. Recommendations/Counseling Done: CHF (EF 50-55% in 2015): At baseline. Edema 2+, recommended continued elevation of LEs. Gave him a sample of size E tubigrip to trial because it's too difficult for him to put on traditional compression stockings. Continue Diltiazem, spironolactone and furosemide. Reitereated "budgeting" his time and energy and prioritizing his tasks and activities to take advantage of his most alert/energetic phases. He "crashes" starting around 4pm HTN: Elevated BP readings. Today 153/96, first visit on 03/27/18 was 165/94. Will notify Coir Dean, his PCP. Patient requested that all medication changes go through his PCP to make it less confusing for him. He is on enalapril 20mg QD, spironolactone 25mg QD, and diltiazem 180mg daily. COPD, end-stage: Chronic SOA with exertion, on 2L O2 continuously. Doesn't want a nebulizer. Continue Combivent QID and Breo Ellipta BID. He continues to smoke at least 1 pack per day. Carpal tunnel syndrome, L wrist: He reports Tylenol 1000 BID has helped the pain. Reminded him he can go up to TID (3000mg daily max). He is using a splint. He can also consider corticoid steroid injections. Diarrhea: Episodic. Recommended fiber tablets such as Benefiber or Good Fiber. Depression with anxiety: Appears to be at baseline, not currently interested in starting an antidepressant. Continue to provide support and monitoring for mood or behavior changes. Advance care planning: Goal of care is to remain in his home. He believes he would be financially able to pay for enough caregiver support to remain at home. He has observed other people decline slowly prior to , and he doesn't want that for himself. He denies an active plan to harm himself, but wants the rahman ce to end his life, without having a definite plan or timeline currently. As such, he still remains at some risk of self harm, and this provider would not personally provide medical clearance, if it was requested, to return the patient's firearm which was confiscated by the police in February. The patient does have social support with close friend Yanick, and a few others. He has caregiving support with Lillian, friend and neighbor. He has good relationships with his step children, particularly his stepdaughter, Teresa, who is his healthcare DPOA. Follow up visit Kimmie 06/04/18, 11:00. Time Spent: 30 minutes were spent with more than 50% of the time spent on counseling, education, providing anticipatory guidance, and coordination of care.
== END 2018-05-12 16:30 | disposition home or self-care (01) ==
LOC: PC 16:29
PROVIDERS: ATTEND Nurse Practitioner
DX: Z51.5 Encounter for palliative care (principal); I11.0 Hypertensive heart disease with heart failure; I50.9 Heart failure, unspecified; J44.9 Chronic obstructive pulmonary disease, unspecified; F41.8 Other specified anxiety disorders; G56.02 Carpal tunnel syndrome, left upper limb; R19.7 Diarrhea, unspecified; I48.92 Unspecified atrial flutter; F17.210 Nicotine dependence, cigarettes, uncomplicated; Z99.81 Dependence on supplemental oxygen; Z79.899 Other long term (current) drug therapy; Z79.51 Long term (current) use of inhaled steroids; Z66 Do not resuscitate; Z91.5 Personal history of self-harm
CPT/HCPCS: 99348

== ENCOUNTER 2018-06-04 11:25 | Outpatient (CLI) | payer MEDICARE, OTHER ==
--- NOTE | 2018-06-04 19:52 | CONSULTATION NOTE ---
Palliative Care Follow Up - Referral Referring Provider: MANDEEP Mckay Time of Visit: Kimmie 06/04/2018. 11:25 - 12:15 Referral setting: Home Referral Reason: Chronic SOA/fatigue - Information Sources Records reviewed: Previous records reviewed History/Review of Systems obtained from: Patient Exam limitations: No limitations - History of Present Illness Update Brief HPI Update: 77-year-old gentleman, EMS was called 03/05/18 when patient fell secondary to CHF exacerbation and hyponatremia. When EMS arrived they found him in the kitchen with a pistol on the table and a suicide note. He was taken to [facility] and treated for CHF exacerbation, hyponatremia and metabolic encephalopathy and discharged home 03/08/18. Hospital SW confirmed with Officer Stiven that weapon and ammunition had been removed from the patient's home and patient was safe with caregiver support Medical history: CHF, COPD with oxygen dependence 2L/min, depression, HTN, atrial flutter, tobacco dependence current smoker, h/o recurrent falls, anxiety, nocturia, urinary frequency, previous suicide attempts, suicide ideation. Patient reports being at his baseline as far as chronic SOA and fatigue. He notes he's sleeping more, both at nighttime and his daytime naps He still "crashes" in the afternoon. A normal day is getting up 6-7am, then sleeping from 10am to 3-4pm. Bedtime is around 10pm. Patient is a current daily smoker. Has increased congestion/post-nasal drainage, no fever; declined loratadine; will try guaifenesin expectorant. Taking Tylenol 1,000mg at a time has helped the carpal tunnel pain in L wrist. Social History - Living Situation Living arrangement: At home Living Situation: Alone Support System: He is from a farm in [place]. 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 He is from his second , Pauline, whom he met in 1989. She of sepsis in February 2014. She had 5 adult children with whom he is close, as well as the step-grandchildren. Yanick and Veronica Bhagat, , are close friends and live on [facility]. Teresa Aquino, , is his stepdaughter and his DPOA. He didn't have the DPOA papers available, but says he has them somewhere. I provided a blank POA form just in case he isn't able to find the current copy. Lillian Kumar, [phone], is his neighbor and caregiver. She comes 3 days a week for 2-3 hours, helps with caregiving and housekeeping. Medications/Allergies - Medications Home Medications: Ambulatory Orders Medication Instructions Recorded Confirmed Ipratropium/Albuterol Sulfate 1 puffs INH QID 01/01/14 06/04/18 [Combivent Respimat 20-100 Mcg] Atorvastatin Calcium 40 mg PO QPM 03/05/18 06/04/18 Fluticasone/Vilanterol [Breo 1 puffs INH DAILY 03/05/18 06/04/18 Ellipta 200-25 Mcg INH] Spironolactone 25 mg PO DAILY 03/05/18 06/04/18 diltiaZEM CD [Cardizem Cd] 180 mg PO DAILY 03/05/18 06/04/18 Furosemide 20 mg PO DAILY #30 tablet 03/08/18 06/04/18 Acetaminophen 1,000 mg PO .BID-TID PRN 03/27/18 06/04/18 Enalapril [Vasotec] 10 mg PO DAILY 03/27/18 06/04/18 Thc Edible Gummies 1 ea PO BID PRN 03/27/18 06/04/18 Thc Salve 1 ea TOP DAILY PRN 03/27/18 06/04/18 Lorazepam [Ativan] 0.5 mg PO BID PRN 06/04/18 06/04/18 - Allergies Allergies/Adverse Reactions: Allergies Allergy/AdvReac Type Severity Reaction Status Date / Time No Known Drug Allergies Allergy Verified 03/05/18 12:27 Review of Systems - Constitutional Constitutional: reports: Fatigue, Weakness, Other (Weight 190 lbs 03/11/18. 194 lbs on 05/18/18, a 4lb gain, PCP increased lasix to 80mg x 3 days on 05/18/18.) - Eyes Eyes: reports: Vision loss, Corrective lenses - Ears, Nose & Throat Ears, Nose & Throat: reports: Nasal congestion, Postnasal drainage - Cardiovascular Cardiovascular: reports: Edema, Exertional dyspnea, Decr. exercise tolerance - Respiratory Respiratory: reports: Cough (chronic), Sputum production - All Other Systems All Other Systems: reports: Other (Limited ROS) Physical Exam - Vital Signs Temperature: 97.1 F Pulse Rate: 71 O2 Saturation: 98 (on oxygen) Blood Pressure: 148/84 - Physical Exam General Appearance: positive: No acute distress, Alert Eyes Bilateral: positive: Normal inspection ENT: positive: No signs of dehydration. negative: Purulent nasal drainage Neck: positive: Trachea midline Cardiovascular: positive: Regular rate & rhythm, No murmur Respiratory: positive: No respiratory distress, Diminished throughout, Other (continueal O2 via nasal cannula). negative: Wheezes, Rales, Rhonchi Skin: positive: Dryness Extremities: positive: Pedal edema (1+) Neurologic/Psychiatric: positive: Oriented x3, Mood/affect nml Palliative Care Performance Status: Ambulatory without walker; slow, careful, stiff gait SOA with minimal exertion, so sits most of the time Takes care of own ADLs but takes a long time Showers independently but with much difficulty and fatigue, so has started avoiding it Isolated due to health/respiratory limitations Urinary frequency and nocturia Has help with house and tasks 3/week for several hours Chronic, lifelong depression Current daily smoker - Palliative Care Discussion: Mentally he's been going through highs and lows. We had long discussion on goals of care, anticipatory needs and changes that could occur as his disease progresses and condition declines. He is very resistant to thinking about this and thinking about plans of care, because, as he says, it's "crossing a red line." He feels frustrated, and also degraded about his physical limitations and that he can no longer live as he wants to live. Everything is a struggle and extremely fatiguing. It takes him so long to get ready, especially showers, so he is finds himself avoiding them because it's so fatiguing and discouraging. His neighbor and friend, Lillian Kumar, is quite devoted and takes care of many things for him, but she is not performing personal caregiving tasks. Hiring caregivers for ADLs and to help him shower is one of the "red lines" that he absolutely doesn't want to cross. For him, it would be degrading; it's where he "doesn't want to go." Asking about him getting a LifeLine is another "red line." He doesn't want one. He explains that for much of his life he's lived in places all around the [place] where the average life expectancy is 30 years. So he thinks differently than the average [place] does about life, longevity, and . He has tried to explain to family and friends his philosophy, that he doesn't want to live without serving a purpose, and being a burden, being dependent. He is fiercely independent, and his independence is what matters to him most, not longevity and not comfort. He's the only grandfather to his step-grandchildren, but "how can I be that to them if I can't even do the simple things, like reading a book out loud to them?" He signed the medical DPOA form. Monserrat Aquino [phone] is his step daughter and DPOA. His friend Yanick Bhagat [phone] is backup DPOA. Monserrat lives on [address] [facility], Yanick in [place]. The patient has tried to broach the subject with Monserrat (that he values independence above all things and feels it's not life if he declines to the point of becoming dependent on others for anything, or everything. When I asked him if he thought they would honor his wishes, for instance about not wanting life support, not wanting to be dependent, he believes they will do what they believe is the right thing. Impression and Recommendations - Palliative Care Impression: 77-year-old gentleman, with history of CHF, HTN, atrial flutter, COPD on continuous oxygen, and current tobacco dependence. He most recent hosp ital[facility] for CHF exacerbation, metabolic encephalopathy and hyponatremia. He was found with a gun and a suicide note. Patient is at baseline within context of steady, slow functional and respiratory decline. Palliative care will continue to provide support for goals of care and symptom management. Recommendations/Counseling Done: CHF (EF 50-55% in 2015): At baseline. Four lb weight gain earlier this month, PCP increased furosemide to 80mg x 3 days then back to 20mg daily. HTN: Today 159/107. He is on enalapril 20mg, spironolactone 25mg, and diltiazem 180mg. Nasal congestion: Start guaifenesin 200mg tab. 200-400 mg PO Q4hr prn. for Cough, phlegm. COPD, end-stage: Chronic SOA with exertion, on 2L O2 continuously. Doesn't want a nebulizer. Continue Combivent QID and Breo Ellipta one puff daily (insurance doesn't cover 2 puffs daily). He continues to smoke at least 1 pack per day. Carpal tunnel syndrome, L wrist: Tylenol 1000mg helps the pain. Reconfirmed that 3000mg daily is the max. Wearing splint. Depression with anxiety: At baseline, "ups and downs" mentally. Not interested in antidepressant. Continue to provide support and monitoring for mood or behavior changes. Advance care planning: DPOA form has been signed. Stepdavirginie Moore is DPOA, friend Yanick Kelsey is backup. Goal of care is to remain in his home. His independence and not being a burden to others is his priority. The patient has a social support network: close friend Yanick and his ; Lillian, friend and neighbor, and good relationships with his step children, particularly his stepdaughter/DPOA Teresa. Follow up every other month Time Spent: 50 minutes were spent with more than 50% of the time spent on counseling, education, providing anticipatory guidance.
== END 2018-06-04 11:26 | disposition home or self-care (01) ==
LOC: PC 11:25
PROVIDERS: ATTEND Nurse Practitioner
DX: Z51.5 Encounter for palliative care (principal); I11.0 Hypertensive heart disease with heart failure; I50.9 Heart failure, unspecified; R09.81 Nasal congestion; G56.02 Carpal tunnel syndrome, left upper limb; F41.8 Other specified anxiety disorders; J44.9 Chronic obstructive pulmonary disease, unspecified; F17.200 Nicotine dependence, unspecified, uncomplicated; Z99.81 Dependence on supplemental oxygen; Z91.81 History of falling; Z91.5 Personal history of self-harm; Z79.899 Other long term (current) drug therapy; Z79.51 Long term (current) use of inhaled steroids
CPT/HCPCS: 99349

== ENCOUNTER 2018-07-28 17:43 | Outpatient (CLI) | payer MEDICARE, OTHER ==
--- NOTE | 2018-07-28 18:20 | CONSULTATION NOTE ---
Palliative Care Follow Up - Referral Referring Provider: MANDEEP Mckay Time of Visit: Holly 07/28/2018. 10:10 - 11:00 Referral setting: Home Referral Reason: Chronic SOA - Information Sources Records reviewed: Previous records reviewed History/Review of Systems obtained from: Patient Exam limitations: No limitations - History of Present Illness Update Brief HPI Update: 77-year-old gentleman, EMS was called 03/05/18 when patient fell secondary to CHF exacerbation and hyponatremia. When EMS arrived they found him in the kitchen with a pistol on the table and a suicide note. He was treated at [facility] and discharged to caregiver's care. Police removed weapon and ammunition from the patient's home. Medical history: CHF, COPD with oxygen dependence 2L/min, depression, HTN, atrial flutter, tobacco dependence current smoker, h/o recurrent falls, anxiety, nocturia, urinary frequency, previous suicide attempts, suicide ideation. Reports he is at his baseline functionally and in terms of shortness of air; no better, no worse. He has erratic eating habits, occasionally will eat once in the morning and not remember to eat again until 1am. Showers take him 1.5 hours, so he's taking them less frequently, every 5-10 days. He's not happy about this change of hygiene; he used to take 2 showers a day. He does maintain cleanliness by washing regularly, even if it's not a shower. Very reluctant to bring someone in to help with showers; this is one of the "lines" he has stated he doesn't want to cross in terms of his declining functionality. He did say today that he might consider asking his friend/neighbor Lillian to help with showers, although he thinks he asks her for too much help at times. His weight is stable, around 192 lbs, but he notes large belly, with muscle wasting in arms, buttocks. He is unable to exercise due to sever SOA. Carpal tunnel pain of L wrist he thinks is better controlled when he uses Dragon balm, vs Tylenol. He also uses CBD edibles. We discussed topical CBD balms/ointments, he's used a THC topical compound. He will ask the [employer] store orthodontist small business owner for further advice on other CBD topical products. Explosive diarrhea x 1 week. Recommended adding fiber, with sufficient fluid otherwise it can cause blockage. He hasn't had any change of diet. Reports urinary "dribbling" that occurs without him noticing, and his pants are wet. Discussed using pads, trying Cavilon durable barrier cream to protect skin, wick off the moisture. He doesn't want to wear "adult briefs" but will consider pads. Continues to smoke, about 1 PPD. Social History - Living Situation Living arrangement: At home Living Situation: Alone Support System: He was raised on a farm in [place]. 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 He is from his second , Pauline, whom he met in 1989. She of sepsis in February 2014. She had 5 adult children with whom he is close, as well as the step-grandchildren. Yanick and Veronica Bhagat, , are close friends and live on [facility] [address]. Teresa Aquino, , is his stepdaughter and his DPOA. He didn't have the DPOA papers available, but says he has them somewhere. I provided a blank POA form just in case he isn't able to find the current copy. Lillian Kumar, [phone], is his neighbor and caregiver. She comes 3 days a week for 2-3 hours, helps with caregiving and housekeeping. Medications/Allergies - Medications Home Medications: Ambulatory Orders Medication Instructions Recorded Confirmed Ipratropium/Albuterol Sulfate 1 puffs INH QID 01/01/14 07/28/18 [Combivent Respimat 20-100 Mcg] Atorvastatin Calcium 40 mg PO QPM 03/05/18 07/28/18 Fluticasone/Vilanterol [Breo 1 puffs INH DAILY 03/05/18 07/28/18 Ellipta 200-25 Mcg INH] Spironolactone 25 mg PO DAILY 03/05/18 07/28/18 diltiaZEM CD [Cardizem Cd] 180 mg PO DAILY 03/05/18 07/28/18 Furosemide 20 mg PO DAILY #30 tablet 03/08/18 07/28/18 Acetaminophen 1,000 mg PO .BID-TID PRN 03/27/18 07/28/18 Enalapril [Vasotec] 10 mg PO DAILY 03/27/18 07/28/18 Thc Edible Gummies 1 ea PO BID PRN 03/27/18 07/28/18 Thc Salve 1 ea TOP DAILY PRN 03/27/18 07/28/18 Lorazepam [Ativan] 0.5 mg PO BID PRN 06/04/18 07/28/18 - Allergies Allergies/Adverse Reactions: Allergies Allergy/AdvReac Type Severity Reaction Status Date / Time No Known Drug Allergies Allergy Verified 03/05/18 12:27 Review of Systems - Constitutional Constitutional: reports: Fatigue, Weight stable (192 lbs) - Eyes Eyes: reports: Vision loss, Corrective lenses - Ears, Nose & Throat Ears, Nose & Throat: denies: Hearing loss - Cardiovascular Cardiovascular: reports: Edema, Exertional dyspnea, Decr. exercise tolerance - Respiratory Respiratory: reports: Cough (chronic), Sputum production, SOB with exertion. denies: Wheezing - Gastrointestinal Gastrointestinal: reports: Constipation (infrequent), Diarrhea (explosive diarrhea x 1 week), Other (erratic eating habits; weight is stable) - Genitourinary Genitourinary: reports: Incontinence (dribbles; leakage) - Musculoskeletal Musculoskeletal: reports: Joint pain (L carpal tunnel syndrome; wear brace) - Psychiatric Psychiatric: reports: Depression, Suicidal (h/o suicidal ideation, suicidal gestures) - Other Findings Other Findings: Limited ROS Physical Exam - Vital Signs Temperature: 96.6 F Pulse Rate: 90 O2 Saturation: 93 (2L O2) Blood Pressure: 175/90 - Physical Exam General Appearance: positive: No acute distress, Alert Eyes Bilateral: positive: Normal inspection ENT: positive: No signs of dehydration Neck: positive: Trachea midline Cardiovascular: positive: Regular rate & rhythm, No murmur, No gallop Respiratory: positive: Chest non-tender, No respiratory distress, Diminished throughout, Other (24-hour 2L oxygen via NC) Skin: positive: Dryness Extremities: positive: Pedal edema (1+) Neurologic/Psychiatric: positive: Oriented x3, Mood/affect nml Palliative Care - POLST Patient has POLST: Yes POLST Status: DNR, Selective Treatment Pain: Pain unchanged Tiredness/Fatigue: Comment ("crashes" in afternoon, fatigued from exertion, speaking) Depression: Moderate (4-6) (lifelong depression), Suidical ideation (history of) Constipation: Intermittent constipation (infrequent) Performance Status: Ambulatory without walker; slow, careful, stiff gait SOA with minimal exertion, so sits most of the time Takes care of own ADLs but takes a long time Showers independently but with much difficulty and fatigue, takes 1.5 hours so has started avoiding it Isolated due to health/respiratory limitations Urinary frequency and nocturia Has help with house and tasks 3 days/week for several hours Chronic, lifelong depression Current daily smoker - Palliative Care Discussion: Last Friday night he had a gathering of [address], the "[employer]." A group of guys who go out every Friday, to a pub, to one of their homes, etc. His friend Yanick did all the arrangements and cooking. Patient had a wonderful time but was absolutely exhausted afterwards. Patient admits he lives in the past. He had a scrapbook out, which was part of a something called the Generation Project that he did with 1 of his grandchildren many years ago. It was his grandchild's school project, each wrote 6 letters to the other. He kept all the letters that he wrote, which he says contain the record of his life. He showed me the pages that listed all the countries he ever traveled to and worked in. It was a very, very impressive list of countries. Patient expresses regret at the loss of the life he used to live. He and his used to be very involved in the community of [place]. He says if he did not have COPD, he would be involved in community activities today. He does admit to being "tired of this," -- his illness, his shortness of air, his current existence. He is agreeable to having the palliative care social work manager visit him for psychosocial support, "because I cannot keep on bothering my friends with all this." Impression and Recommendations - Palliative Care Impression: 77-year-old gentleman, with history of CHF, HTN, atrial flutter, COPD on continuous oxygen, and current tobacco dependence. He has history of suicide ideation, suicidal gestures -- found with a gun and suicide note at [facility], when he was last hospitalized. Patient is at baseline within context of steady, slow functional and respiratory decline. He would benefit from receiving psychosocial support of Palliative care social work manager. Palliative Care team will continue to provide support for goals of care and symptom management. Recommendations/Counseling Done: CHF (EF 50-55% in 2015): At baseline. At baseline weight of 192 lbs. Mild edema; he doesn't elevate LEs. On furosemide 20mg daily. HTN: Today 175/90. Continue enalapril 20mg, spironolactone 25mg, and diltiazem 180mg. COPD, end-stage: Chronic SOA with exertion, continue 2L O2 continuously. Doesn't want a nebulizer, uses Combivent QID and Breo Ellipta daily. He is active smoker, about 1 pack per day. Carpal tunnel syndrome, L wrist: Had been using Tylenol 1000mg, but thinks Dragon [place] works just as well. Also using chewable CBD gummies, and a topical THC product. He will ask the local CBD store for more topical products; the orthodontist small business owner has a good reputation. He's wearing a splint on the L wrist. Depression with anxiety: At baseline. Not interested in antidepressant. A referring him to Palliative Care Back Grinder for psychosocial counseling and support. He is agreeable to this. Advance care planning: DNR and selective treatment. Goal of care is to remain in his home, retain his independence and not be a burden to others. He has a reliable social support network: close friend Yanick and his ; Lillian, friend and neighbor helps him regularly, he may ask her for help with showering. Is not considering paid caregiver support presently. He has good relationships with his step children. His stepdaughter Teresa is his DPOA. Follow up FriSeptember 23, 2018, 10:00, and as needed Time Spent: 50 minutes were spent with more than 50% of the time spent on counseling, education and coordinating care with Palliative Care social work manager.
== END 2018-07-28 17:44 | disposition home or self-care (01) ==
LOC: PC 17:43
PROVIDERS: ATTEND Nurse Practitioner
DX: Z51.5 Encounter for palliative care (principal); I50.9 Heart failure, unspecified; J44.9 Chronic obstructive pulmonary disease, unspecified; Z99.81 Dependence on supplemental oxygen; I10 Essential (primary) hypertension; G56.02 Carpal tunnel syndrome, left upper limb; F41.8 Other specified anxiety disorders; R19.7 Diarrhea, unspecified; R35.1 Nocturia; R35.0 Frequency of micturition; F17.210 Nicotine dependence, cigarettes, uncomplicated; H54.7 Unspecified visual loss; R29.6 Repeated falls; Z91.5 Personal history of self-harm; Z79.51 Long term (current) use of inhaled steroids; Z66 Do not resuscitate
CPT/HCPCS: 99349

== ENCOUNTER 2018-10-19 17:26 | Outpatient (CLI) | payer MEDICARE, OTHER ==
--- NOTE | 2018-10-19 17:49 | CONSULTATION NOTE ---
Palliative Care Follow Up - Referral Referring Provider: Cori KAUFMAN Time of Visit: 10/19/2018. 13:20 - 14:10 Referral setting: Home Referral Reason: Fatigue - Information Sources Records reviewed: Previous records reviewed History/Review of Systems obtained from: Patient Exam limitations: No limitations - History of Present Illness Update Brief HPI Update: 77-year-old gentleman, EMS was called 03/05/18 when patient fell secondary to CHF exacerbation and hyponatremia. When EMS arrived they found him in the kitchen with a pistol on the table and a suicide note. He was treated at [facility] and discharged to caregiver's care. Police removed weapon and ammunition from the patient's home. Medical history: CHF, COPD with oxygen dependence 2L/min, depression, HTN, atrial flutter, tobacco dependence current smoker, h/o recurrent falls, anxiety, nocturia, urinary frequency, previous suicide attempts, suicide ideation. Patient today is very out of breath, complains of increased SOA and fatigue and feeling frustrated. He does have some intermittent episodes of tachycardia of 100-105 BPM for several hours. Also carpal tunnel pain in L wrist worsening. His PCP had wanted to order Home Health OT therapy. Unfortunately OT is not able to come out as a stand-alone service, and patient is not interested in going to out-patient therapy, so he has not followed up. He reports stomach upset (gas, bubbling, loose stools) when taking Tylenol and NSAIDs. We discussed this, he will trial stopping the ibuprofen to see if his stomach upset improves. Reviewed Tylenol dosing should be maximum of 3000mg daily, and that would be 6 tablets for him since he has 500mg tablets. He is agreeable to trialing an oral steroid for shortness of breath and wrist pain. Did discuss that it can also cause stomach upset. He uses CBD gummies and CBD salve for L wrist, doesn't feel it helps much. He drinks 2-3 (large) glasses wine daily. Social History - Living Situation Living arrangement: At home Living Situation: Alone Support System: He was raised on a farm in [place]. 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 He is from his second , Pauline, whom he met in 1989. She of sepsis in February 2014. She had 5 adult children with whom he is close, as well as the step-grandchildren. He has friends and family who visit frequently and provide support. Yanick and Veronica Bhagat, , are close friends and live on [address]. Teresa Aquino, , is his stepdaughter and his DPOA. He didn't have the DPOA papers available, but says he has them somewhere. I provided a blank POA form just in case he isn't able to find the current copy. Lillian Kumar, , is his neighbor and caregiver. She comes 3 days a week for 2-3 hours, helps with caregiving and housekeeping. Medications/Allergies - Medications Home Medications: Ambulatory Orders Medication Instructions Recorded Confirmed Ipratropium/Albuterol Sulfate 1 puffs INH QID 01/01/14 10/19/18 [Combivent Respimat 20-100 Mcg] Atorvastatin Calcium 40 mg PO QPM 03/05/18 10/19/18 Fluticasone/Vilanterol [Breo 1 puffs INH DAILY 03/05/18 10/19/18 Ellipta 200-25 Mcg INH] Spironolactone 25 mg PO DAILY 03/05/18 10/19/18 diltiaZEM CD [Cardizem Cd] 180 mg PO DAILY 03/05/18 10/19/18 Furosemide 20 mg PO DAILY #30 tablet 03/08/18 10/19/18 Acetaminophen 1,000 mg PO .BID-TID PRN 03/27/18 10/19/18 Enalapril [Vasotec] 10 mg PO DAILY 03/27/18 10/19/18 Thc Edible Gummies 1 ea PO BID PRN 03/27/18 10/19/18 Thc Salve 1 ea TOP DAILY PRN 03/27/18 10/19/18 Lorazepam [Ativan] 0.5 mg PO BID PRN 06/04/18 10/19/18 - Allergies Allergies/Adverse Reactions: Allergies Allergy/AdvReac Type Severity Reaction Status Date / Time No Known Drug Allergies Allergy Verified 03/05/18 12:27 Review of Systems - Constitutional Constitutional: reports: Fatigue, Weakness, Weight stable (around 192 lbs), Other (current smoker 1/2-1 PPD) - Eyes Eyes: reports: Vision loss, Corrective lenses - Ears, Nose & Throat Ears, Nose & Throat: denies: Hearing loss - Cardiovascular Cardiovascular: reports: Edema, Exertional dyspnea, Decr. exercise tolerance - Respiratory Respiratory: reports: Cough, Sputum production, SOB with exertion. denies: Wheezing - Gastrointestinal Gastrointestinal: reports: Other (abdominal discomfort, gas, thinks it may be related to ibuprofen). denies: Constipation (infrequent), Poor appetite - Genitourinary Genitourinary: reports: Frequency, Incontinence (dribbles; leakage), Nocturia - Musculoskeletal Musculoskeletal: reports: Joint pain (L carpal tunnel syndrome, worsening) - Integumentary Integumentary: reports: Dryness - Psychiatric Psychiatric: reports: Depression (lifelong depression). denies: Suicidal (denies currently; h/o suicidal gesture) - All Other Systems All Other Systems: reports: Reviewed and negative Physical Exam - Vital Signs Temperature: 97.0 F Pulse Rate: 85 O2 Saturation: 93 (3L O2) Blood Pressure: 143/89 (wrist cuff) - Physical Exam General Appearance: positive: No acute distress, Alert Eyes Bilateral: positive: Normal inspection ENT: positive: No signs of dehydration Cardiovascular: positive: Regular rate & rhythm, No murmur Respiratory: positive: No respiratory distress, Diminished in bases (sounds of air movement undetectable via auscultation). negative: Wheezes Abdomen: positive: Non-tender, Soft Skin: positive: Pallor, Dryness, Other (red, thickened skin on nose) Extremities: positive: Pedal edema (mild) Neurologic/Psychiatric: positive: Oriented x3, Mood/affect nml Palliative Care - POLST Patient has POLST: Yes POLST Status: DNR, Selective Treatment Pain: Location (L wrist), Comment (carpal tunnel pain is bothering him more) Tiredness/Fatigue: Severe (7-10), Comment (Feels exhausted) Drowsiness/Sedation: Mild (1-3) Nausea: None Depression: Moderate (4-6) Anxiety: Mild (1-3) Dyspnea: Severe (7-10) Sleep: Variable sleep pattern Constipation: No Performance Status: Oxygen dependent, now 3L/min Ambulatory without walker; slow, careful, stiff gait Significant SOA with minimal exertion, so sits most of the time Takes care of own ADLs but takes a long time Showers independently but with much difficulty and fatigue, takes 1.5 hours, tends to avoid it Urinary frequency and nocturia Friend/exercise science instructor helps around house about 3 days/week for several hours Chronic, lifelong depression, prior suicidal gestures Current smoker - Palliative Care Discussion: Patient still struggles with exhaustion and sleeps excessively. Afternoons are the worst time. He has always struggled with depression, he doesn't notice much change. He's had a lifelong pattern of waking up very early, around 4am, with dark, dreary thoughts. He has learned to distract himself: reading, etc. He struggles mentally with his declining physical condition and ongoing exhaustion from SOA and pain in the wrist, misses the life and activities he used to have. He self medicates with CBD oral products and topical gel, and several glasses of wine daily. We discussed trialing oral steroids for relieve of SOA and pain wrist, weighing benefits and burdens of side effects. He is agreeable to trialing it. He is leaving the house less and less frequently, about 1-2x week. He can still drive, but he is "paranoid" that something will happen to him or his oxygen when he is out, so he avoids leaving. It is why he declined going to outpatient Occupational Therapy for his wrist. His family and friends continue to be very supportive, that's a bright spot in his life, and he is grateful for their support and being there for him. He continues to enjoy telling his "stories." Today was one about how his late found their house in 1966, before they were to each other. He still lives on the land of that house; they had that house relocated elsewhere in [place] and built the new home he currently lives in. Impression and Recommendations - Palliative Care Impression: 77-year-old gentleman, with history of CHF, HTN, atrial flutter, COPD on continuous oxygen, and current tobacco dependence. He has history of suicide ideation, suicidal gestures -- found with a gun and suicide note at [facility] [place], when he was last hospitalized. Patient has significant SOA, oxygen usage is up to 3L. Palliative Care team will continue to provide support and symptom management. Recommendations/Counseling Done: COPD, end-stage: Chronic SOA with any exertion, now on 3L O2 continuously. Doesn't want a nebulizer, on Combivent QID and Breo Ellipta daily. Smokes about 1 pack per day. Will start a trial of prednisone for SOA: Prednisone 10mg tablets: 4 tablets x 3 days, then 3 tablets x 3 days, then 2 tablets x 3 days, then 1 tablet x 3 days. Carpal tunnel syndrome, L wrist: No improvement. Uses Tylenol 1000mg up to 3 time daily, reminded him about the maximum of 3000mg/day. Will stop using ibuprofen due to stomach upset. He's using chewable CBD gummies, and a topical THC product, doesn't think they're helping much. Will start oral steroids, hopefully will provide some relief, will monitor for stomach upset. He declined out-patient OT as ordered by PCP, due to reluctance to leave house. Unfortunately HH OT doesn't come as a standalone service, and he doesn't have a qualifying need for HH PT beveling and edging machine operator services. CHF (EF 50-55% in 2015): Weight is stable, around 192 lbs. Mild edema; he doesn't elevate LEs. Continue furosemide 20mg daily. Depression with anxiety: Continues at baseline, doesn't want antidepressant, this has been lifelong. He drinks 2-3 glasses of wine a day. He has seen Palliative Care Air Conditioning Equipment Mechanic for counseling and support, doesn't think it helps but is agreeable for periodic follow up visits. A vulnerable time is around [place]: the anniversary of his 's is a few days before [place]. Advance care planning: DNR and selective treatment. He wants to remain in his home, retain his independence and not be a burden to others. There are many "red lines" he does not want to cross: not being able to perform his own ADLs or showers, geetting a [employer]. He does have a reliable social support network: close friend Yanick and his ; his group of men friends that get together regularly; Lillian, his neighbor who helps him regularly; his stepchildren. His stepdaughter Teresa is his DPOA. Time Spent: 50 minutes were spent with more than 50% of the time spent on counseling, education, and coordination of care.
== END 2018-10-19 17:27 | disposition home or self-care (01) ==
LOC: PC 17:26
PROVIDERS: ATTEND Nurse Practitioner
DX: Z51.5 Encounter for palliative care (principal); J44.9 Chronic obstructive pulmonary disease, unspecified; G56.02 Carpal tunnel syndrome, left upper limb; I50.9 Heart failure, unspecified; F32.9 Major depressive disorder, single episode, unspecified; F41.9 Anxiety disorder, unspecified; F17.200 Nicotine dependence, unspecified, uncomplicated; R06.02 Shortness of breath; G47.10 Hypersomnia, unspecified; I11.0 Hypertensive heart disease with heart failure; Z91.5 Personal history of self-harm; Z99.81 Dependence on supplemental oxygen; Z66 Do not resuscitate
CPT/HCPCS: 99349

== ENCOUNTER 2018-10-21 14:40 | Observation (INO) | payer MEDICARE, OTHER ==
[2018-10-21] MEDS ORDERED: predniSONE 20 MG TABLET PO STA (15:24)
[2018-10-21] MEDS ORDERED: IPRATROPIUM/ALBUTEROL 3 ML NEB INH STA (15:24)
--- NOTE | 2018-10-21 15:46 | ED Physician Documentation ---
History of Present Illness - Stated complaint Stated Complaint: SOA, TEMP - Chief complaint Chief Complaint: Resp - History obtained from History obtained from: Patient, Caregiver - History of Present Illness Pain level max: 0 Pain level now: 0 - Additonal information Additional information: 77-year-old male with a history of CHF and COPD. States he has had increasing trouble breathing for the last 3 years. States that this been a gradual decline. Decided to come in today for evaluation. States he uses Combivent this morning without relief. States that his temperature has "gone up and down" but has not had any fevers that he is aware of. No chest pain. He is normally on 3 L of home O2. He is on palliative care. Better with rest and worse with walking. Review of Systems Ten Systems: 10 systems reviewed and negative Constitutional: denies: Fever, Chills Ears: denies: Ear pain Nose: denies: Rhinorrhea / runny nose, Congestion Throat: denies: Sore throat Cardiac: denies: Chest pain / pressure, Palpitations Respiratory: reports: Dyspnea, Cough (chronic) GI: denies: Nausea, Vomiting, Diarrhea Skin: denies: Rash Musculoskeletal: denies: Neck pain, Back pain Neurologic: denies: Headache PD PAST MEDICAL HISTORY - Past Medical History Past Medical History: Yes Cardiovascular: Congestive heart failure, Hypertension, High cholesterol, Co ronary artery disease, Peripheral Vascular Disease, Atrial flutter, Atrial fibrillation, Murmur, Arrhythmia Respiratory: Asthma, COPD, Pneumonia, Shortness of breath, Sleep apnea, Other Neuro: Dementia, Headaches, Peripheral neuropathy, Tremors Endocrine/Autoimmune: None GI: GERD : None, Nocturia, Frequency HEENT: Chronic vision loss, Chronic hearing loss Psych: Depression, Anxiety, Post traumatic stress disorder Musculoskeletal: Osteoarthritis, Fatigue, Chronic back pain, Other Derm: None - Past Surgical History Past Surgical History: Yes Cardiovascular: Angioplasty - Present Medications Home Medications: Ambulatory Orders Medication Instructions Recorded Confirmed Ipratropium/Albuterol Sulfate 1 puffs INH QID 01/01/14 10/19/18 [Combivent Respimat 20-100 Mcg] Atorvastatin Calcium 40 mg PO QPM 03/05/18 10/19/18 Fluticasone/Vilanterol [Breo 1 puffs INH DAILY 03/05/18 10/19/18 Ellipta 200-25 Mcg INH] Spironolactone 25 mg PO DAILY 03/05/18 10/19/18 diltiaZEM CD [Cardizem Cd] 180 mg PO DAILY 03/05/18 10/19/18 Furosemide 20 mg PO DAILY #30 tablet 03/08/18 10/19/18 Acetaminophen 1,000 mg PO .BID-TID PRN 03/27/18 10/19/18 Enalapril [Vasotec] 10 mg PO DAILY 03/27/18 10/19/18 Thc Edible Gummies 1 ea PO BID PRN 03/27/18 10/19/18 Thc Salve 1 ea TOP DAILY PRN 03/27/18 10/19/18 Lorazepam [Ativan] 0.5 mg PO BID PRN 06/04/18 10/19/18 - Allergies Allergies/Adverse Reactions: Allergies Allergy/AdvReac Type Severity Reaction Status Date / Time No Known Drug Allergies Allergy Verified 10/21/18 14:50 - Social History Does the pt smoke?: Yes Smoking Status: Current every day smoker Does the pt drink ETOH?: Yes Does the pt have substance abuse?: No - Immunizations Immunizations are current?: No - POLST Patient has POLST: Yes POLST Status: DNR PD ED PE NORMAL - Vitals Vital signs reviewed: Yes - General General: Alert and oriented X 3, No acute distress, Well developed/nourished - HEENT HEENT: PERRL, Moist mucous membranes - Neck Neck: Supple, no meningeal sign - Cardiac Cardiac: RRR, Strong equal pulses - Respiratory Respiratory: No respiratory distress, Other (Diminished breath sounds bilaterally) - Abdomen Abdomen: Soft, Non tender, Non distended - Derm Derm: Warm and dry, No rash - Extremities Extremities: Other (1+ pitting edema bilateral lower extremity) - Neuro Neuro: Alert and oriented X 3 - Psych Psych: Normal mood, Normal affect Results - Vitals Vitals: Vital Signs - 24 hr 10/21/18 10/21/18 10/21/18 14:47 15:40 15:53 Temperature 36.8 C Heart Rate 99 87 85 Respiratory 20 16 13 Rate Blood Pressure 134/89 H 140/90 H O2 Saturation 95 95 10/21/18 10/21/18 10/21/18 17:00 18:37 19:19 Temperature 36.6 C Heart Rate 93 102 H 107 H Respiratory 18 18 19 Rate Blood Pressure 155/86 H O2 Saturation 98 97 Oxygen O2 Source Nasal cannula Oxygen Flow Rate 3 - Labs Labs: Laboratory Tests 10/21/18 10/21/18 10/21/18 15:50 15:50 15:50 WBC 10.4 RBC 3.70 L Hgb 12.3 L Hct 35.3 L MCV 95.4 H MCH 33.2 H MCHC 34.8 RDW 12.6 Plt Count 247 MPV 9.9 Neut # (Auto) 9.6 H Lymph # (Auto) 0.5 L [place] # (Auto) 0.3 Eos # (Auto) 0.0 Baso # (Auto) 0.0 Absolute Nucleated RBC 0.00 Nucleated RBC % 0.0 Sodium 127 L Potassium 4.6 Chloride 94 L Carbon Dioxide 23 Anion Gap 10.0 BUN 26 H Creatinine 1.0 Estimated GFR (MDRD) 73 L Glucose 159 H Lactic Acid Calcium 9.1 Total Bilirubin 0.4 AST 26 ALT 29 Alkaline Phosphatase 83 B-Natriuretic Peptide 117 H Total Protein 6.6 L Albumin 3.6 Globulin 3.0 Albumin/Globulin Ratio 1.2 Lipase 23 10/21/18 18:30 WBC RBC Hgb Hct MCV MCH MCHC RDW Plt Count MPV Neut # (Auto) Lymph # (Auto) [place] # (Auto) Eos # (Auto) Baso # (Auto) Absolute Nucleated RBC Nucleated RBC % Sodium Potassium Chloride Carbon Dioxide Anion Gap BUN Creatinine Estimated GFR (MDRD) Glucose Lactic Acid 1.9 Calcium Total Bilirubin AST ALT Alkaline Phosphatase B-Natriuretic Peptide Total Protein Albumin Globulin Albumin/Globulin Ratio Lipase - Rads (name of study) cxr Radiology: Prelim report reviewed, EMP read contemporaneously, See rad report (COPD. Hazy opacity in the lingula could represent pneumonia. ) PD MEDICAL DECISION MAKING - ED course Complexity details: reviewed old records, reviewed results, re-evaluated patient, considered differential, d/w patient, d/w framing consultant ED course: 77-year-old male with a COPD exacerbation and pneumonia. He is unable to even stand without becoming significantly short of breath. Given steroids, nebulizer treatments and antibiotics. Will place in observation for further care. Discussed the case with the hospitalist, Dr. Broussard who accepts. This document was made in part using voice recognition software. While efforts are made to proofread this document, sound alike and grammatical errors may occur. Departure - Departure Disposition: ED Place in Observation Clinical Impression: Pneumonia, COPD exacerbation Condition: Stable Discharge Date/Time: 10/21/18 20:17
[2018-10-21 16:00] LABS: BASOPHILS % (AUTO) 0.1 %; EOSINOPHILS % (AUTO) 0.1 %; HGB - HEMOGLOBIN 12.3 g/dL (14.0-18.0); LYMPHOCYTES # (AUTO) 0.5 10^3/uL (1.5-3.5); LYMPHOCYTES % (AUTO) 4.6 %; MEAN CORPUSCULAR HEMOGLOBIN 33.2 pg (27.0-31.0); MEAN CORPUSCULAR HGB CONC 34.8 g/dL (32.0-36.0); MEAN CORPUSCULAR VOLUME 95.4 fL (80.0-94.0); MEAN PLATELET VOLUME 9.9 fL (7.4-11.4); MONOCYTES # (AUTO) 0.3 10^3/uL (0.0-1.0); MONOCYTES % (AUTO) 2.7 %; NEUTROPHILS # (AUTO) 9.6 10^3/uL (1.5-6.6); NEUTROPHILS % (AUTO) 91.7 %; PLT - PLATELET COUNT 247 10^3/uL (130-450); RED CELL DISTRIBUTION WIDTH 12.6 % (12.0-15.0); WHITE BLOOD COUNT 10.4 x10^3/uL (4.8-10.8)
[2018-10-21 16:14] LABS: ALBUMIN 3.6 g/dL (3.2-5.5); ALBUMIN/GLOBULIN RATIO 1.2 (1.0-2.2); BILIRUBIN,TOTAL 0.4 mg/dL (0.2-1.0); CALCIUM 9.1 mg/dL (8.5-10.3); TOTAL PROTEIN 6.6 g/dL (6.7-8.2)
[2018-10-21] MEDS ORDERED: SODIUM CHLORIDE 0.9% 500 ML IV ONE (16:23)
--- NOTE | 2018-10-21 16:54 | XRAY Report ---
Reason: cough, fever Procedure Date: 10/21/2018 Accession Number: [id number] / [id number] Procedure: XR - Chest 2 View X-Ray CPT Code: 94778 FULL RESULT: EXAM: CHEST RADIOGRAPHY EXAM DATE: 10/21/2018 04:27 PM. CLINICAL HISTORY: Cough, fever. COMPARISON: CHEST 2 VIEW 03/05/2018 1:05 PM. TECHNIQUE: 2 views. FINDINGS: Lungs/Pleura: There is a hazy opacity in the lingula. Mild diffuse interstitial prominence. No edema. No pleural effusion. No pneumothorax. There is hyperinflation, in keeping with COPD. Mediastinum: Heart and mediastinal contours are normal. Other: None. IMPRESSION: COPD. Hazy opacity in the lingula could represent pneumonia. RADIA
[2018-10-21] MEDS ORDERED: DOXYCYCLINE 100 MG TABLET PO STA (17:48)
[2018-10-21] MEDS ORDERED: ALBUTEROL NEB 2.5 MG/3 ML INH STA (18:20)
[2018-10-21] MEDS ORDERED: oxyCODONE 5 MG TABLET PO PRN (19:40)
[2018-10-21] MEDS ORDERED: ONDANSETRON ODT 4 MG TABLET TL PRN (19:40)
[2018-10-21] MEDS ORDERED: SODIUM CHLORIDE FLUSH 0.9% 10 ML SYRINGE IVP PRN (19:40)
[2018-10-21] MEDS ORDERED: ACETAMINOPHEN 325 MG TABLET PO PRN (19:40)
[2018-10-21] MEDS ORDERED: ONDANSETRON 4 MG/2 ML VIAL IVP PRN (19:40)
[2018-10-21] MEDS ORDERED: IPRATROPIUM/ALBUTEROL 3 ML NEB INH PRN (19:41)
[2018-10-21] MEDS: SODIUM CHLORIDE 0.9% 1,000 ML IV SCH (21:36)
--- NOTE | 2018-10-21 22:01 | HISTORY & PHYSICAL EXAMINATION ---
Chief Complaint - Chief Complaint Chief Complaint: dyspnea History of Present Illness - Admitted From Admitted From:: [facility] ED - History Obtained From Records Reviewed: yes History obtained from: patient - History of Present Illness HPI Comment/Other: Patient seen and examined on 10/21/2018 at 20:30pm Patient is a 77 y/o male who presented to the ED initially for a slightly elevated temperature and because family was concerned that he was gasping for air while talking on the phone. The patient has history of CHF, hypertension, hyperlipidemia, CAD, PVD, atrial fibrillation and COPD for which he is on 3L Oxygen via nasal canula at home. This is an increase from 2L in the past month. His respiratory status has been steadily declining over the past 3 years. He continues to smoke daily. He sees palliative care and has home aides. He also reports a good support of friends and family nearby. He reports going through periods of respiratory distress which he has been dealing with at home on his own. He adds that it usually calms down after a while and that today's presentation was nothing new. Today he explains that a combination of physical exertion trying to ensure that things were in order for family that was visiting and emotional distress precipitated his apparent gasping. Objectively, he has been getting more short of breath walking a few feet to the bathroom. He was assessed in the ED and just going from the gurney to the chair left him gasping for air. As a result he was presented for admission. It is unclear how much of his episodes are confounded by anxiety. He used to take ativan 2-3 times a week but now takes it daily. He also reports that it helps him calm down. He appears frustrated and emotional about his overall condition. He expressed that he just wants to be left alone. He appears somewhat dishevelled/unkempt. His feet are very dry and scaly. He does not have chest pain, abdominal pain, nausea or vomiting. History - Past Medical History Cardiovascular: reports: Congestive heart failure, Hypertension, High cholesterol, Coronary artery disease, Peripheral Vascular Disease, Atrial flutter, Atrial fibrillation, Murmur, Arrhythmia Respiratory: reports: Asthma, COPD, Pneumonia, Shortness of breath, Sleep apnea, Other Neuro: reports: Dementia, Headaches, Peripheral neuropathy, Tremors Endocrine/Autoimmune: reports: None GI: reports: GERD : reports: None, Nocturia, Frequency HEENT: reports: Chronic vision loss, Chronic hearing loss Psych: reports: Depression, Anxiety, Post traumatic stress disorder Musculoskeletal: reports: Osteoarthritis, Fatigue, Chronic back pain, Other Derm: reports: None MRSA Hx?: No - Past Surgical History Cardiovascular: reports: Angioplasty - Family & Social History Family History: Mother: , CAD, Father: , CAD, Brother: Alive and Well, , CAD Social History Notes: The patient has been retired for several years but worked for the [employer] and 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 Most of his work was done [place]. He was to his , who 5 years ago. He lives independently and has caregiver severel times per week. He has a best friend named Yanick. The patient admits to life long cigarette smoking, occasional alcohol use, or illicit drug use, although tested + for marijuana. The patient requests to be a DNR. - Substance History Use: Uses substance without health or social issues: Tobacco, Alcohol (moderate, daily use), Cannabis (THC oral gummies twice daily) - POLST Patient has POLST: Yes POLST Status: DNR Meds/Allgy - Home Medications Home Medications: Ambulatory Orders Medication Instructions Recorded Confirmed RX: Ipratropium/Albuterol Sulfate 1 puffs INH QID 01/01/14 10/19/18 [Combivent Respimat 20-100 Mcg] RX: Atorvastatin Calcium 40 mg PO QPM 03/05/18 10/19/18 RX: Fluticasone/Vilanterol [Breo 1 puffs INH DAILY 03/05/18 10/19/18 Ellipta 200-25 Mcg INH] RX: Spironolactone 25 mg PO DAILY 03/05/18 10/19/18 RX: diltiaZEM CD [Cardizem Cd] 180 mg PO DAILY 03/05/18 10/19/18 RX: Furosemide 20 mg PO DAILY #30 tablet 03/08/18 10/19/18 RX: Acetaminophen 1,000 mg PO .BID-TID PRN 03/27/18 10/19/18 RX: Enalapril [Vasotec] 10 mg PO DAILY 03/27/18 10/19/18 Thc Edible Gummies 1 ea PO BID PRN 03/27/18 10/19/18 Thc Salve 1 ea TOP DAILY PRN 03/27/18 10/19/18 RX: Lorazepam [Ativan] 0.5 mg PO BID PRN 06/04/18 10/19/18 - Allergies Allergies/Adverse Reactions: Allergies Allergy/AdvReac Type Severity Reaction Status Date / Time No Known Drug Allergies Allergy Verified 10/21/18 14:50 Review of Systems - Constitutional Constitutional: reports: Fatigue. denies: Fever, Chills - Eyes Eyes: denies: Blurred vision, Vision loss - Ears, Nose & Throat Ears, Nose & Throat: denies: Vertigo, Nasal pain, Nasal discharge, Sore throat - Cardiovascular Cariovascular: reports: Other (tachycardia) - Respiratory Respiratory: reports: SOB at rest, SOB with exertion. denies: Cough, Wheezing, Hemoptysis - Gastrointestinal Gastrointestinal: denies: Abdominal pain, Abdominal distention, Constipation, Diarrhea, Black stools, Nausea, Vomiting - Genitourinary Genitourinary: denies: Dysuria, Frequency, Hematuria - Musculoskeletal Musculoskeletal: denies: Muscle pain, Back pain, Muscle aches, Stiffness - Integumentary Integumentary: reports: Dryness. denies: Rash, Pruritis, Lesions - Neurological Neurological: reports: General weakness. 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 Most of his work was done [place]. He was to his , who 5 years ago. He lives independently and has caregiver several times per week. He has a best friend named Yanick. The patient admits to life long cigarette smoking, occasional alcohol use. He use marijuana (edibles). The patient requests to be a DNR. Has has become increasingly dyspneic jut ambulating a few feet to the bathroom. Exam - Vital Signs Vital Signs: Vital Signs x48h Temp Pulse Pulse Resp BP BP Pulse Ox 10/21/18 20:28 36.5 C 109 H 16 146/89 H 98 10/21/18 19:51 106 H 18 139/81 H 96 10/21/18 19:19 36.6 C 107 H 19 155/86 H 97 10/21/18 18:37 102 H 18 10/21/18 17:00 93 18 98 10/21/18 15:53 85 13 10/21/18 15:40 87 16 140/90 H 95 10/21/18 14:47 36.8 C 99 20 134/89 H 95 - Physical Exam General Appearance: positive: Alert, Moderate distress, Anxious Eyes Bilateral: positive: Normal inspection, PERRL, EOMI ENT: positive: ENT inspection nml Neck: positive: Nml inspection, No JVD, Trachea midline Respiratory: positive: Chest non-tender, Other (Decreased breath sounds). negative: Rales, Rhonchi Cardiovascular: positive: No murmur, Tachycardia Abdomen: positive: Non-tender, Nml bowel sounds, No distention. negative: Guarding, Rebound Back: positive: Nml inspection Skin: positive: Color nml, Warm, Dry Extremities: positive: Non-tender, Pedal edema (trace to +1) Neurologic/Psychiatric: positive: Oriented x3, Motor nml, Sensation nml Conclusion/Plan - Problem List (1) COPD exacerbation Conclusion/Plan: Patient's condition is progressing/ worsening Patient is in the terminal stages as evidenced by severely limited ability to function Duoneb q4hr prn. Solumedrol q8hrs tid Azithromycin ordered. Considering disposition: The topic of hospice has been brought up before. I asked the patient about it again. He seems to get even more distraught when I asked He maintains that he has a good support system at home. Between the home health clinical liaison, his friend and family in the area A strong possibility for discharge would be home with hospice. Plan for discharge tomorrow since he is at his baseline If/When patient discharging on hospice, medications may be reviewed to continue only those medications that will aid the comfort process (2) Congestive heart failure (CHF) Conclusion/Plan: On lasix, spironolactone and enalapril.Will resume once verified (3) Atrial fibrillation and flutter Conclusion/Plan: On diltiazem. Will continue (4) Hyperlipidemia Conclusion/Plan: On atorvastatin (5) Anxiety Conclusion/Plan: On ativan 0.5mg po bid prn - Lab Results Fish Bones: 10/21/18 15:50 10/21/18 15:50 Core Measures - Anticipated LOS I expect patient to be DC'd or transferred within 96 hours.: Yes - DVT/VTE - Prophylaxis VTE/DVT Device ordered at admit?: Yes VTE/DVT Prophylaxis med ordered at admit?: Yes
[2018-10-21] MEDS: methylPREDNISolone SUCCINATE 125 MG/2 ML VIAL IVP SCH (22:28)
[2018-10-22] MEDS: SODIUM CHLORIDE FLUSH 0.9% 10 ML SYRINGE IVP SCH ×2 (01:00→08:50)
[2018-10-22 01:52] LABS: BILIRUBIN,URINE NEGATIVE (NEGATIVE); GLUCOSE, URINE (UA) NEGATIVE (NEGATIVE); KETONES,URINE (UA) NEGATIVE (NEGATIVE); LEUKOCYTE ESTERASE, URINE NEGATIVE (NEGATIVE); NITRITE,URINE NEGATIVE (NEGATIVE); OCCULT BLOOD,URINE NEGATIVE (NEGATIVE); PROTEIN,URINE NEGATIVE (NEGATIVE); UROBILINOGEN,URINE 0.2 (NORMAL) E.U./dL (NORMAL)
[2018-10-22 01:53] LABS: CLARITY,URINE CLEAR (CLEAR)
[2018-10-22] MEDS: methylPREDNISolone SUCCINATE 125 MG/2 ML VIAL IVP SCH ×2 (05:39→13:59)
[2018-10-22] MEDS ORDERED: BENZOCAINE/MENTHOL LOZENGE MM PRN (05:49)
[2018-10-22] MEDS: SODIUM CHLORIDE 0.9% 1,000 ML IV SCH (06:59)
[2018-10-22] MEDS ORDERED: POLYETHYLENE GLYCOL 3350 17 GM PACKET PO SCH (09:00)
[2018-10-22] MEDS ORDERED: diltiaZEM CD 180 MG CAPSULE PO SCH (09:00)
[2018-10-22] MEDS ORDERED: AZITHROMYCIN INJ 500 MG in SODIUM CHLORIDE 0.9% 250 ML IV SCH (09:00)
[2018-10-22] MEDS ORDERED: ENALAPRIL 5 MG TABLET PO SCH (09:00)
[2018-10-22] MEDS ORDERED: guaiFENesin 600 MG TABLET PO SCH (12:00)
[2018-10-22 12:02] LABS: ABG PH 7.43 (7.35-7.45)
[2018-10-22 12:03] LABS: ABG BASE EXCESS -1.2 mmol/L (-2.0-3.0); ABG HCO3 22.7 mmol/L (22.0-26.0); ABG OXYGEN SATURATION 95 % (94-98); ABG PCO2 35 mmHg (34-45); ABG PO2 77 mmHg (80-100); ABG TCO2 23.8 MMOL/L (21.0-29.0); ALLEN TEST POSITIVE
[2018-10-22 12:04] VITALS: BP 134/76
--- NOTE | 2018-10-22 13:43 | Discharge Plan ---
Discharge Plan Problem Reviewed?: Yes Disposition: Home, Self Care Condition: Fair Prescriptions: Methylprednisolone [Medrol Dose Pack] 1 each PO .PACKAGEINSTRUCTIONS 6 Days #1 each Diet: Regular Activity Restrictions: Activity as Tolerated Shower Restrictions: No Driving Restrictions: Yes (no driving) Assistance Devices: Walker, Cane Instruction Topics: Methylprednisolone tablets, Pneumonia Dc Health Concerns: You presented to the hospital because your doctor's office told you to come in. You sounded very short of breath on the phone when you spoke to them. You stoutly maintains that there is nothing going on. You have been this short of breath for weeks if not months. In the emergency room you were so short of breath you could not transition from a laying, to a sitting, to a standing position. You would struggle to breathe and drop your oxygen saturations. Plan of Treatment: . Today you have improved with empiric use of antibiotics. A specific antibiotic called azithromycin will treat the inflammation of emphysema while not really treating infection. We also gave you nebulizers as opposed to an inhaled Respimat inhaler. You also received IV steroids.We held a large discussion with your 3 children, myself, and nephrology social worker. You have not decided when end-of-life will come for you. You have not defined those restrictions that you feel are not acceptable. You would like to have an open discussion with your children in private at home regarding this.. Today you have improved with empiric use of antibiotics. A specific antibiotic called azithromycin will treat the inflammation of emphysema while not really treating infection. We also gave you nebulizers as opposed to an inhaled Respimat inhaler. You also received IV steroids. Care Goals: 1. please see your primary care provider in follow-up in the next 1 to 2 weeks 2. To reduce inflammation in your lungs, take the short burst of steroid pills called into [facility] 3. Ask your primary care provider if you are a candidate for inhaled nebulizer treatments since the handheld Respimat inhaler may not be effective for you. I would recommend albuterol via nebulizer to be taken 3 times a day on a regular basis. Spiriva to be taken once a day. 4. You have indicated to your children that you would like to sit down with them and start advance care planning to see what your life needs to look like to get the help to stay independent at home. 5. You will be continued to be seen by palliative care consultation, but this time by CHRISTIANE Dockery. Dilcia Witt has left for a new position in [place] Assessment: patient has stated these goals are temporarily acceptable until he has further conversation with his children No Smoking: If you smoke, Please STOP! Call for help. Follow-up with: Cori Dean ARNP [Physician No Access] -
--- NOTE | 2018-10-22 16:45 | DISCHARGE SUMMARY ---
Discharge Summary Admit Date: 10/21/18 Discharge Date: 10/22/18 Discharging Provider: Fiona Broussard MD Primary Care Provider: Prateek Pedroza MD Code Status: Do Not Attempt Resuscitation Condition at Discharge: Poor Discharge Disposition: 01 Home, Self Care - DIAGNOSES Discharge Diagnoses with Status of Each Condition: 1. COPD exacerbation, resolved 2. Chronic systolic congestive heart failure 3. Chronic atrial fibrillation 4. Hyperlipidemia 5. Anxiety - HPI History of Present Illness: Patient seen and examined on 10/21/2018 at 20:30pm Patient is a 77 y/o male who presented to the ED initially for a slightly elevated temperature and because family was concerned that he was gasping for air while talking on the phone. The patient has history of CHF, hypertension, hyperlipidemia, CAD, PVD, atrial fibrillation and COPD for which he is on 3L Oxygen via nasal canula at home. This is an increase from 2L in the past month. His respiratory status has been steadily declining over the past 3 years. He continues to smoke daily. He sees palliative care and has home aides. He also reports a good support of friends and family nearby. He reports going through periods of respiratory distress which he has been dealing with at home on his own. He adds that it usually calms down after a while and that today's presentation was nothing new. Today he explains that a combination of physical exertion trying to ensure that things were in order for family that was visiting and emotional distress precipitated his apparent gasping. Objectively, he has been getting more short of breath walking a few feet to the bathroom. He was assessed in the ED and just going from the gurney to the chair left him gasping for air. As a result he was presented for admission. It is unclear how much of his episodes are confounded by anxiety. He used to take ativan 2-3 times a week but now takes it daily. He also reports that it helps him calm down. He appears frustrated and emotional about his overall condition. He expressed that he just wants to be left alone. He appears somewhat dishevelled/unkempt. His feet are very dry and scaly. He does not have chest pain, abdominal pain, nausea or vomiting. History - Past Medical History Cardiovascular: reports: Congestive heart failure, Hypertension, High cholesterol, Coronary artery disease, Peripheral Vascular Disease, Atrial flutter, Atrial fibrillation, Murmur, Arrhythmia Respiratory: reports: Asthma, COPD, Pneumonia, Shortness of breath, Sleep apnea, Other Neuro: reports: Dementia, Headaches, Peripheral neuropathy, Tremors Endocrine/Autoimmune: reports: None GI: reports: GERD : reports: None, Nocturia, Frequency HEENT: reports: Chronic vision loss, Chronic hearing loss Psych: reports: Depression, Anxiety, Post traumatic stress disorder Musculoskeletal: reports: Osteoarthritis, Fatigue, Chronic back pain, Other Derm: reports: None MRSA Hx?: No - CONSULTS | PROCEDURES Procedures: chest x-ray with hazy opacity in the lingula that could represent pneumonia. - HOSPITAL COURSE Hospital Course: He did not have an elevated white cell count. The patient was initially felt stable enough to go to home in the emergency room. His hypoxia was chronic and stable. However, when the ER staff attempted to get him up to "road test him" he became severely tachypneic, tachycardic, and gasping for air. This in turn caused anxiety and panic and worsened his COPD. I went and examined the patient in the emergency room. Spent some time with him and had an advanced care planning conversation. I tried to road test him again, and again he failed. As such he was placed in observation. Overnight he received regular doses of DuoNeb, a dose of IV antibiotics, and continued steroids. By the morning of discharge, the patient was felt to be back to his baseline and he concurred. He was adamant that yesterday was "glitch" and that he was feeling much better today. Blood gas was done and his pH is 7.43, PCO2 35, PO2 77%. Base excess is -1.2. His systolic congestive heart failure was not felt to be an issue. His chronic atrial fibrillation remained rate controlled. Anxiety was definitely a component of some of his COPD exacerbation. Instructions are for him to see his primary care physician in follow-up. To continue seeing palliative care. On the day of discharge advance care planning conversation was held with his 3 stepchildren. All in agreement to the patient going to go home and to sit down and have a meaningful conversation with their father about how he defines quality of life, and how he wants his final days to look. He was not willing to discuss that with me or social work. He said it was a private conversation between he and his children. He is to be sent home on a tapering dose of a Medrol Dosepak. I have asked him to switch to an nebulizer as opposed to a handheld Respimat. I have asked him to make sure he takes it on a fixed schedule not a as needed basis. I have also started azithromycin for 5 more days oral therapy. On examination he is alert, oriented, elderly male, unshaven and slightly disheveled. Speaking for more than 10 minutes causes him to be exhausted and tachypneic. It takes him about 5 minutes to recover. He needs 2 L nasal cannula to maintain his O2 sats greater than 92%. Diminished breath sounds diffusely with very prolonged and exhalation phase. But no crackles rhonchi out right wheezing. No use of his accessory muscles. He has an irregular rate and rhythm. His legs have varicose veins, trace edema. Abdomen is benign with hypoactive bowel sounds. - ALLERGIES Allergies/Adverse Reactions: Allergies Allergy/AdvReac Type Severity Reaction Status Date / Time No Known Drug Allergies Allergy Verified 10/21/18 14:50 - MEDICATIONS Home Medications: Ambulatory Orders Medication Instructions Recorded Confirmed Ipratropium/Albuterol Sulfate 1 puffs INH QID 01/01/14 10/22/18 [Combivent Respimat 20-100 Mcg] Atorvastatin Calcium 40 mg PO QPM 03/05/18 10/22/18 Fluticasone/Vilanterol [Breo 1 puffs INH DAILY 03/05/18 10/22/18 Ellipta 200-25 Mcg INH] Spironolactone 25 mg PO DAILY 03/05/18 10/22/18 diltiaZEM CD [Cardizem Cd] 180 mg PO DAILY 03/05/18 10/22/18 Acetaminophen 1,000 mg PO .BID-TID PRN 03/27/18 10/22/18 Enalapril [Vasotec] 10 mg PO DAILY 03/27/18 10/22/18 Thc Edible Gummies 1 ea PO BID PRN 03/27/18 10/22/18 Thc Salve 1 ea TOP DAILY PRN 03/27/18 10/22/18 Lorazepam [Ativan] 0.5 mg PO BID PRN 06/04/18 10/22/18 Azithromycin 250 mg PO DAILY 5 Days #6 tab 10/22/18 Furosemide 20 mg PO DAILY 10/22/18 10/22/18 Methylprednisolone [Medrol Dose 1 each PO .PACKAGEINSTRUCTIONS 6 10/22/18 Pack] Days #1 each - LABS Result Diagrams: 10/21/18 15:50 10/21/18 15:50
--- NOTE | 2018-10-22 16:56 | ADVANCE CARE PLANNING NOTE ---
Advance Care Planning - Planning Encounter Date: 10/22/18 Time: 11:00 Purpose: to continue to ask him to delineate how he wants us to care for him as his COPD/CHF gets worse since he is so angry at being here Parties in Attendance: son and 2 daughters, Teresa is is DPOA. social service manager Marisol. Hospitalist. Patient. Decisional Capacity of the Patient: he is alert, oriented, able to make his own decisions. - Encounter Subjective/Patient's Story: Elderly gentleman who continues to smoke up to 4 packs a day, and is starting to drink quite heavily to control pain in his forearms from carpal tunnel syndrome and also has chronic systolic congestive heart failure, and COPD with oxygen dependence at 2 L a minute. He has lifelong depression. As his illness got the best of him, and he was drinking heavily in 2017, he decided to end his life. However he had shared that thought process with his children and his friends and interventions were made. He was found at his kitchen table with a gun in his hand. He was brought into the hospital for COPD exacerbation as well as CHF exacerbation. Police removed the gun from his home. He lives in his own home. in 2013 at [facility]. He describes a steadily deteriorating cardiopulmonary status for at least 3 years. He no longer sleeps in the bed and prefers to sleep upright in a chair or in his sofa since at least 2015, he thinks. It is just easier that way. After his February 2018 hospitalization, he has not been hospitalized again. And he returns to the hospital at the request of his primary care provider, Kandi Dean. Daughter, Teresa, his [employer]OWER OF [employer]MI[employer] INTER[employer], is at the bedside. She describes a deteriorating status where he has no energy because of shortness of breath to even get up to go to the bathroom. He sometimes pees in his kitchen sink when he cannot make it back to the bathroom. He is also occasionally soiled himself. Because it is too much of an effort to bathe, he no longer wants to bathe. Eating has become problematic. He does not have formal caregivers that he is tired but relies on a network of friends, and family to come help him. [place] more more on his neighbor. He spoke to his primary care provider on the day of admission. He was very short of breath and she asked that he be brought to the emergency room. He is very angry to be here. He feels that his independence and his philosophy of life are not to be discussed. He feels he made the mistake of sharing with his children and friends his suicidal thoughts and his plans to "end it" when he felt like he was too sick enough. Now he does not want to share any information with people because he is afraid that they will take away his rights and his ability to do what he wants to do. He states that he has not to find what quality of life means for him. That he is not made any conscious thought process or decisions about defining quality of life so as to help us help him decide when the end is near. If the end comes he wants about his terms and he does not want help from hospice, care providers or his children. Objective/Medical Story: Patient is a 77 y/o male who presented to the ED initially for a slightly elevated temperature and because family was concerned that he was gasping for air while talking on the phone. The patient has history of CHF, hypertension, hyperlipidemia, CAD, PVD, atrial fibrillation and COPD for which he is on 3L Oxygen via nasal canula at home. This is an increase from 2L in the past month. His respiratory status has been steadily declining over the past 3 years. He continues to smoke daily. He sees palliative care and has home aides. He also reports a good support of friends and family nearby. He reports going through periods of respiratory distress which he has been dealing with at home on his own. He adds that it usually calms down after a while and that today's presentation was nothing new. Today he explains that a combination of physical exertion trying to ensure that things were in order for family that was visiting and emotional distress precipitated his apparent gasping. Objectively, he has been getting more short of breath walking a few feet to the bathroom. He was assessed in the ED and just going from the gurney to the chair left him gasping for air. As a result he was presented for admission. It is unclear how much of his episodes are confounded by anxiety. He used to take ativan 2-3 times a week but now takes it daily. He also reports that it helps him calm down. He appears frustrated and emotional about his overall condition. He expressed that he just wants to be left alone. He appears somewhat dishevelled/unkempt. His feet are very dry and scaly. He does not have chest pain, abdominal pain, nausea or vomiting. Goals of Care: He is adamant that he has not decided what those are. Other than he wants to be left alone, live in his own home, and that he gets to decide what his quality of life is and when he will end it. He does not want any care providers in his home. At this point in time his children are really insisting that he get more help in the home if he plans on living at home. Plan: 1. He agrees to start having initial conversations with his children about quality of life and his definition of quality of life. 2. Once he decides what is important to him, he was share with his children, so they can make plans accordingly. Questions to be possibly asked are how many times would he want to be hospitalized before saying no more, what would make that happen, does he even want to be hospitalized since he is so clearly angry at being here, would he prefer to stay at home, would he prefer to be at a [place] [facility] facility, would he ever consider hospice? 3. Agrees, temporarily, to increase care providers that will be private duty hirer. His children will start looking at that. But he wants to see how he does when he gets home over the next few days. He thinks he feels improved enough that he can go back to using a cane or walker and not urinate in the sink 4. He is asking for a hospital bed, a bedside commode. I am asking him to follow-up with his primary care provider, Prateek Jade, deceiving get prescriptions for those. 5. I am also asking him to start taking nebulizers, not metered-dose inhalers, on a regular basis. And to see if daily Spiriva will help him. Again, as Dr. Jade to provide those prescriptions Code Status: Do Not Attempt Resuscitation Time spent on advance care plannin
== END 2018-10-22 14:46 | disposition home or self-care (01) ==
LOC: ED 14:40 → MS2 19:40
PROVIDERS: ADMIT Specialist; ATTEND Specialist
DX: J44.1 Chronic obstructive pulmonary disease with (acute) exacerbation (principal); I11.0 Hypertensive heart disease with heart failure; I50.22 Chronic systolic (congestive) heart failure; I48.2 Chronic atrial fibrillation; F17.210 Nicotine dependence, cigarettes, uncomplicated; F41.9 Anxiety disorder, unspecified; F32.9 Major depressive disorder, single episode, unspecified; F03.90 Unspecified dementia, unspecified severity, without behavioral disturbance, psychotic disturbance, mood disturbance, and anxiety; F43.10 Post-traumatic stress disorder, unspecified; I25.10 Atherosclerotic heart disease of native coronary artery without angina pectoris; E78.5 Hyperlipidemia, unspecified; I73.9 Peripheral vascular disease, unspecified; Z99.81 Dependence on supplemental oxygen; I48.92 Unspecified atrial flutter; G47.30 Sleep apnea, unspecified; G62.9 Polyneuropathy, unspecified; R25.1 Tremor, unspecified; K21.9 Gastro-esophageal reflux disease without esophagitis; R35.1 Nocturia; R35.0 Frequency of micturition; H54.7 Unspecified visual loss; H91.90 Unspecified hearing loss, unspecified ear; M19.90 Unspecified osteoarthritis, unspecified site; R53.83 Other fatigue; G89.29 Other chronic pain; M54.9 Dorsalgia, unspecified; G56.03 Carpal tunnel syndrome, bilateral upper limbs; I83.893 Varicose veins of bilateral lower extremities with other complications; Z66 Do not resuscitate; Z87.01 Personal history of pneumonia (recurrent); Z72.89 Other problems related to lifestyle; Z79.51 Long term (current) use of inhaled steroids
CPT/HCPCS: 36415; 36600; 71046; 80053; 81003; 82803; 83605; 83690; 83880; 85025; 87040; 93005; 94640; 96361; 96365; 96372; 99284; 99285; A9270; G0378; J7512; 81001; 87086

== ENCOUNTER 2018-10-27 10:20 | Outpatient (CLI) | payer MEDICARE, OTHER ==
--- NOTE | 2018-10-27 15:19 | CONSULTATION NOTE ---
Palliative Care Follow Up - Referral Referring Provider: Cori KAUFMAN Time of Visit: Ro[place] 10/27/2018. Referral setting: Home Referral Reason: End stage COPD - Information Sources Records reviewed: Previous records reviewed History/Review of Systems obtained from: Patient, Caregiver Exam limitations: No limitations - History of Present Illness Update Brief HPI Update: 77-year-old gentleman, with endstage COPD oxygen dependent, recently in hospital for worsening symptoms of SOA. Medical history: CHF, COPD with oxygen dependence 2L/min, depression, HTN, atrial flutter, tobacco dependence current smoker, h/o recurrent falls, anxiety, nocturia, urinary frequency, previous suicide attempts, suicide ideation. On 10/21/18 he was taken to ED due to family's concern that he was gasping for breath on the phone and also had a slightly elevated temperature. Patient was very upset and angry being in hospital, reporting his gasping was from physical exertion and emotional stress in preparation for a family visit. However, during hospital stay he became short of breath walking a few feet to the bathroom, also when transferring from gurney to chair. Due to his severe SOA he was admitted. While in hospital he was treated with regular doses of DuoNeb, a dose of IV antibiotics, and steroids. He was discharged home with oral azithromycyn and a Medrol Dosepak. On the day of discharge hospitalist had an advanced care planning conversation with patient and his stepchildren, agreeing to go home and have a meaningful conversation with Teresa and Beka, his stepchildren, regarding his goals of care and how he defines qualify of life. Patient was unwilling to discuss that with hospitalist and hospital SW, he wanted that to be a private conversation among himself and his stepchildren. Palliative care provider had several conversation with stepdaughter/DPPILAR Moore who did confirm they had some good conversations Tho and over the weekend, and patient was agreeable to continue the discussion with Palliative Care provider this week. Today's visit is at the patient's house, and present are the patient and Lillian, his friend/caregiver/aid. Patient appears calm and now that he is out of the traumatic situation of being hospitalized he is not feeling overwhelmed, angry, and distressed. He agrees he could use additional support for hygiene and is open to hiring a caregiver for that. Lillian has the information sheet listing the caregiver agencies that operate on [facility]. The patient and Lillian have been discussing plans to increase Lillian's hours working for him and how to schedule around her other job. They are also discussing other ideas, like bringing in patient's vice chairman to his home regularly, something important to the patient for his perceived quality of life. Patient reports his SOA is back to baseline; he is on 24 hour oxygen, now at 3L, up from 2L a few months ago. He is finishing up the azithromycin cycle today and will be completing the Medrol pack in 2 days. Hospitalist recommended following up with PCP about albuterol via nebulizer TID and Spiriva once a day. After long discussion (see Palliative Care Discussion) patient is agreeable for transition to Hospice care. Social History - Living Situation Living arrangement: At home Living Situation: Alone Support System: He was raised on [place] farm in [place]. 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 He is from his second , Pauline, whom he met in 1989. She of sepsis in February 2014. She had 5 adult children with whom he is close, as well as the step-grandchildren. He has friends and family who visit frequently and provide support. Yanick and Veronica Bhagat, , are close friends and live on [facility]. Teresa Aquino, , is his stepdaughter and his DPOA. He didn't have the DPOA papers available, but says he has them somewhere. I provided a blank POA form just in case he isn't able to find the current copy. Lillian Kumar, , is his friend and aid/caregiver, though doesn't provide personal or hygiene care. They are planning to increase the hours she works to 5 days/week, 4 hours split into a.m. and p.m. shifts, her daughter may come to help. Lillian can also be automation and controls supervisor on weekends, her employer at [employer] knows she provides caregiving for the patient and is flexible. Medications/Allergies - Medications Home Medications: Ambulatory Orders Medication Instructions Recorded Confirmed Ipratropium/Albuterol Sulfate 1 puffs INH QID 01/01/14 10/27/18 [Combivent Respimat 20-100 Mcg] Atorvastatin Calcium 40 mg PO QPM 03/05/18 10/27/18 Fluticasone/Vilanterol [Breo 1 puffs INH DAILY 03/05/18 10/27/18 Ellipta 200-25 Mcg INH] Spironolactone 25 mg PO DAILY 03/05/18 10/27/18 diltiaZEM CD [Cardizem Cd] 180 mg PO DAILY 03/05/18 10/27/18 Acetaminophen 1,000 mg PO .BID-TID PRN 03/27/18 10/22/18 Enalapril [Vasotec] 10 mg PO DAILY 03/27/18 10/27/18 Thc Edible Gummies 1 ea PO BID PRN 03/27/18 10/27/18 Thc Salve 1 ea TOP DAILY PRN 03/27/18 10/27/18 Lorazepam [Ativan] 0.5 mg PO BID PRN 06/04/18 10/27/18 Azithromycin 250 mg PO DAILY 5 Days #6 tab 10/22/18 10/27/18 Furosemide 20 mg PO DAILY 10/22/18 10/27/18 Methylprednisolone [Medrol Dose 1 each PO .PACKAGEINSTRUCTIONS 6 10/22/18 10/27/18 Pack] Days #1 each - Allergies Allergies/Adverse Reactions: Allergies Allergy/AdvReac Type Severity Reaction Status Date / Time No Known Drug Allergies Allergy Verified 10/21/18 14:50 Review of Systems - Constitutional Constitutional: reports: Fatigue, Weakness, Weight gain, Other (Weight 193.6 lbs 10/21/18 at ED. Current smoker. also reports 2-3 glasses wine/night) - Eyes Eyes: reports: Vision loss, Corrective lenses - Ears, Nose & Throat Ears, Nose & Throat: reports: Other (poor dentition). denies: Hearing loss - Cardiovascular Cardiovascular: reports: Edema, Exertional dyspnea, Decr. exercise tolerance - Respiratory Respiratory: reports: Cough, Sputum production, Orthopnea, SOB at rest, SOB with exertion, Other (sleeps sitting up on couch or chair, with legs dependent. finds it "easier" that way) - Gastrointestinal Gastrointestinal: reports: Other (constipation/explosive diarrhea stopped by the time he went to hospital. BMs are farily regular now) - Genitourinary Genitourinary: reports: Frequency, Incontinence (dribbles; functional incontinence at times, too SOA to make it to toilet) - Integumentary Integumentary: reports: Dryness, Other (dry, flaky feet) - Psychiatric Psychiatric: reports: Depression (lifelong), Anxiety, Suicidal (history of suicidal gesture 2017) Physical Exam - Vital Signs Temperature: 95.8 F Pulse Rate: 88 O2 Saturation: 95 (3L O2) Blood Pressure: 176/107 (wrist cuff) - Physical Exam General Appearance: positive: No acute distress, Alert, Anxious (per patient's report, he's feeling mildly anxious) Eyes Bilateral: positive: Normal inspection ENT: positive: Dry mucous membranes Neck: positive: Trachea midline Cardiovascular: positive: Regular rate & rhythm, No murmur Respiratory: positive: No respiratory distress, Other (no sounds of air movement detectable via auscultation) Skin: positive: Pallor, Dryness, Other (red, thickened skin on nose) Extremities: positive: Pedal edema (mild) Neurologic/Psychiatric: positive: Oriented x3, Mood/affect nml Palliative Care - POLST Patient has POLST: Yes POLST Status: DNR, Selective Treatment Pain: Pain unchanged, Location (carpal tunnel syndrome L wrist) Tiredness/Fatigue: Moderate (4-6), Comment (afternoons are when he "crashes" from fatigue) Dyspnea: Moderate (4-6), Comment (at baseline) Constipation: No Performance Status: Oxygen dependent, 3L/min Ambulatory around home, doesn't use walker; slow, careful, stiff SOA improved after hospital, antibiotics, and steroid taper Slow doing own ADLs Showers are difficult, has been avoiding them. Consents to having bath aid help Urinary frequency and nocturia - Palliative Care Discussion: Lengthy discussion with patient what is important to him, what a good quality of life looks like, what isn't good quality of life. He absolutely doesn't want to go back to the hospital again. He finds it traumatic and stressful. He wants to remain in his home and be as independent as possible. He does agree that he could use additional caregiving support with this, and he wants it to be provided by Lillian, whom he trusts. Lillian is present today and confirms that she is agreeable to this plan. During his talks with his family this weekend, his daughter said he did recognize there will likely come a time when he won't be able to stay at home. He does want the people he cares about around him. Today he is much calmer than he was in the hospital, and is willing to have a conversation about Hospice with the Palliative Care provider. We discussed at length Hospice and what it is and offers. Also clarified that COPD patients can experience a period of improvement and stabilization that could mean at some point he would no longer medically qualify for hospice. When patient realized he medically qualifies for Hospice, he was agreeable to admit to Hospice because it meets his goal of staying out of hospital, remaining at home (he understands Hospice does not provide mcfp care), and maximizing his quality of life without burdensome medical interventions. So palliative care is referring patient to Hospice. Impression and Recommendations - Palliative Care Impression: 77-year-old gentleman, with history of CHF, HTN, atrial flutter, endstage COPD on continuous oxygen, recently in hospital for worsening SOA and COPD exacerbation. He qualifies for Hospice (oxygen dependent, increasomg decline and hospitalization for severe respiraotyrflare ups) and it meets his goals of care. Palliative Care will refer patient to Hospice care. Recommendations/Counseling Done: COPD, end-stage: Hospitalized earlier this week for acute SOA and COPD exacerbation. Discharged on oral azithromycin and Medrol dose pack, finishing up both of these. Hospitalist recommends using albuterol via nebulizer 3x /day and Spiriva daily, patient is not on these currently. Patient SOA symptoms have improved with the abox and steroid treatments, but SOA continues with with any exertion. Advance care planning: Patient has worsening end-stage, oxygen-dependent COPD. Patient wants no further hospitalization nor burdensome medical intervention, wants to remain at home, and concentrate on quality of life. He is arranging increased caregiver support. He agrees Hospice fits with his goals of care. Palliative care is referring patient to Hospice. Time Spent: 60 minutes were spent with more than 50% of the time spent on counseling, education, providing anticipatory guidance regarding COPD disease, Hospice benefits and service, and coordination of care with Hospice.
== END 2018-10-27 10:21 | disposition home or self-care (01) ==
LOC: PC 10:20
PROVIDERS: ATTEND Nurse Practitioner
DX: Z51.5 Encounter for palliative care (principal); J44.9 Chronic obstructive pulmonary disease, unspecified; Z99.81 Dependence on supplemental oxygen; I11.0 Hypertensive heart disease with heart failure; I50.9 Heart failure, unspecified; I48.92 Unspecified atrial flutter; F17.200 Nicotine dependence, unspecified, uncomplicated; Z79.899 Other long term (current) drug therapy; Z66 Do not resuscitate
CPT/HCPCS: 99350